=== PATIENT | female | born 1965 | race African-American/Black ===

== ENCOUNTER 2016-12-23 12:29 | Inpatient (IN) | payer BC, OTHER ==
[~2016-12-23] VITALS: Ht 160 cm; Wt 109.5 kg
--- NOTE | 2016-12-23 13:06 | PHYS DOC ---
Past Medical History Past Medical History: GERD, Hypertension, Other Additional Past Medical Histor: SEASONAL ALLERGIES Past Surgical History: Hysterectomy Alcohol Use: Occasionally Drug Use: None Adult General Chief Complaint Chief Complaint: CHEST PAIN HPI HPI Patient is a 51 year old female who presents with low back pain. Patient reports starting yesterday she has had some cramping low back pain. No clear inciting event. Patient has had multiple episodes like this in the past. She has tried ibuprofen, Tylenol, with insufficient relief. In addition, patient reports for the past couple days she has been having intermittent chest pain. She had an episode last night she describes a sharp pain that lasted about 5 minutes. She does feel little short of breath with these episodes, and becomes nauseous. She is not having any chest discomfort or shortness of breath at this time. She denies any cardiac history. Review of Systems Review of Systems Constitutional: Denies fever or chills Eyes: Denies change in visual acuity or eye pain HENT: Denies nasal congestion or sore throat Respiratory: Intermittent shortness of breath. Denies cough Cardiovascular: Intermittent chest pain GI: Intermittent nausea. Denies abdominal pain, vomiting, bloody stools or diarrhea : Denies dysuria or hematuria Musculoskeletal: Low back pain Integument: Denies rash or skin lesions Neurologic: Denies headache, focal weakness or sensory changes Current Medications Current Medications Current Medications Medications (Trade) Dose Ordered Sig/Marnie Start Time Stop Time Status Last Admin Dose Admin Acetaminophen/ Hydrocodone Bitart (Lortab 5/325) 2 tab 1X ONCE 12/23/16 13:30 12/23/16 13:48 DC Aspirin (Children'S Aspirin) 324 mg 1X ONCE 12/23/16 13:30 12/23/16 13:31 DC 12/23/16 13:38 324 MG Heparin Sodium (Porcine) (Heparin Sodium) 2,650 unit PRN Q6HRS PRN 12/23/16 13:30 Heparin Sodium (Porcine) 4000 unit 4,000 unit 1X ONCE 12/23/16 13:30 12/23/16 13:31 DC 12/23/16 13:40 4,000 UNIT Heparin Sodium/ Dextrose 500 ml @ 0 mls/hr CONT PRN 12/23/16 13:30 12/23/16 13:47 25.4 MLS/HR Morphine Sulfate 4 mg STK-MED ONCE 12/23/16 13:50 12/23/16 13:51 DC Allergies Allergies Allergies Coded Allergies Type Severity Reaction Last Updated Verified No Known Drug Allergies 01/21/16 No Physical Exam Physical Exam Constitutional: Well developed, well nourished, no acute distress, non-toxic appearance HENT: Normocephalic, atraumatic, bilateral external ears normal Eyes: EOMI, conjunctiva normal, no discharge Neck: Normal range of motion, no stridor Cardiovascular: Heart rate normal, regular rhythm, no murmur Lungs & Thorax: Bilateral breath sounds clear to auscultation Abdomen: Bowel sounds normal, soft, non-distended, no TTP Skin: Warm, dry, no erythema, no rash Back: Mild lateral lumber tenderness to palpation, no midline TTP, no deformity or skin lesion Extremities: Trace edema. No obvious deformity Neurologic: Alert and oriented X 3, no gross deficits noted Psychologic: Affect normal, judgement normal, mood normal Current Patient Data Vital Signs Vital Signs Date Time Temp Pulse Resp B/P Pulse Ox O2 Delivery O2 Flow Rate FiO2 12/23/16 14:10 73 17 187/105 Room Air 12/23/16 14:03 96 12/23/16 12:35 98.1 98.1 Lab Values Laboratory Tests Test 12/23/16 12:40 12/23/16 13:35 White Blood Count 8.3x10^3/uL (4.0-11.0) Red Blood Count 5.18x10^6/uL (3.50-5.40) Hemoglobin 13.3g/dL (12.0-15.5) Hematocrit 42.2% (36.0-47.0) Mean Corpuscular Volume 81fL (79-100) Mean Corpuscular Hemoglobin 26pg (25-35) Mean Corpuscular Hemoglobin Concent 32g/dL (31-37) Red Cell Distribution Width 15.3% (11.5-14.5) H Platelet Count 205x10^3/uL (140-400) Neutrophils (%) (Auto) 69% (31-73) Lymphocytes (%) (Auto) 22% (24-48) L Monocytes (%) (Auto) 4% (0-9) Eosinophils (%) (Auto) 4% (0-3) H Basophils (%) (Auto) 1% (0-3) Neutrophils # (Auto) 5.7x10^3uL (1.8-7.7) Lymphocytes # (Auto) 1.9x10^3/uL (1.0-4.8) Monocytes # (Auto) 0.4x10^3/uL (0.0-1.1) Eosinophils # (Auto) 0.3x10^3/uL (0.0-0.7) Basophils # (Auto) 0.1x10^3/uL (0.0-0.2) Prothrombin Time 13.5SEC (11.7-14.0) Prothrombin Time INR 1.1 (0.8-1.1) PTT 33SEC (24-38) Sodium Level 143mmol/L (136-145) Potassium Level 4.2mmol/L (3.5-5.1) Chloride Level 105mmol/L (98-107) Carbon Dioxide Level 27mmol/L (21-32) Anion Gap 11 (6-14) Blood Urea Nitrogen 13mg/dL (7-20) Creatinine 0.9mg/dL (0.6-1.0) Estimated GFR (Cockcroft-Gault) 80.5 Glucose Level 139mg/dL (70-99) H Calcium Level 9.1mg/dL (8.5-10.1) Total Bilirubin 0.5mg/dL (0.2-1.0) Direct Bilirubin 0.1mg/dL (0.0-0.2) Aspartate Amino Transferase (AST) 33U/L (15-37) Alanine Aminotransferase (ALT) 30U/L (14-59) Alkaline Phosphatase 78U/L (46-116) Troponin I Quantitative < 0.017ng/mL (0.000-0.055) Total Protein 7.8g/dL (6.4-8.2) Albumin 3.6g/dL (3.4-5.0) Urine Collection Type Unknown Urine Color Yellow Urine Clarity Clear Urine pH 6.0 Urine Specific [place] 1.025 Urine Protein Negativemg/dL (NEG-TRACE) Urine Glucose (UA) Negativemg/dL (NEG) Urine Ketones (Stick) Negativemg/dL (NEG) Urine Blood Negative (NEG) Urine Nitrite Negative (NEG) Urine Bilirubin Negative (NEG) Urine Urobilinogen Dipstick 1.0mg/dL (0.2 mg/dL) Urine Leukocyte Esterase Small (NEG) Urine RBC 0/HPF (0-2) Urine WBC 5-10/HPF (0-4) Urine Squamous Epithelial Cells Mod/LPF Urine Bacteria Moderate/HPF (0-FEW) Urine Mucus Mod/LPF Urine Trichomonas Present Laboratory Tests 12/23/16 12:40 Laboratory Tests 12/23/16 12:40 EKG EKG EKG (my read): sinus rhythm, rate 75, normal axis, TWI lead I/aVL, ST elevation anterior precordial leads Radiology/Procedures Radiology/Procedures CXR: Impression: No acute cardiopulmonary process. Course & Med Decision Making Course & Med Decision Making Pertinent Labs and Imaging studies reviewed. (See chart for details) Patient is 51-year-old female who presents with acute on chronic low back pain. More concerning is patient's intermittent chest pain. EKG concerning with T- wave inversions and ST elevation. I did not activate a STEMI as patient denies any chest discomfort or shortness of breath at this time. 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 EKG, chest x-ray, labs ordered to evaluate. Aspirin given as well as heparin drip as per Dr. Colin's recommendation. Blood work unremarkable; troponin within normal limits. EKG and imaging results as above. Dr. Colin has seen patient while in ED. Discussed results with patient. Discussed with Dr. Garcia, will admit under his care for further evaluation treatment. Dragon Disclaimer Dragon Disclaimer This electronic medical record was generated, in whole or in part, using a voice recognition dictation system. Departure Departure Impression: Primary Impression: Intermittent chest pain Additional Impressions: Abnormal EKG Low back pain Disposition: ADMITTED INPATIENT Admitting Physician: Shwetha Garcia Condition: STABLE Referrals: UNKNOWN PCP NAME (PCP) Problem Qualifiers JAXSON MACIAS MD Dec 23, 2016 13:06
[2016-12-23 13:15] LABS: BASO # 0.1 x10^3/uL (0.0-0.2); BASO % 1 % (0-3); EOS % 4 % (0-3); HEMATOCRIT 42.2 % (36.0-47.0); HEMOGLOBIN 13.3 g/dL (12.0-15.5); LYMPH # 1.9 x10^3/uL (1.0-4.8); LYMPH % 22 % (24-48); MEAN CORPUSCULAR HEMOGLOBIN 26 pg (25-35); MEAN CORPUSCULAR HGB CONC 32 g/dL (31-37); MEAN CORPUSCULAR VOLUME 81 fL (79-100); MONO % 4 % (0-9); NEUT % 69 % (31-73); PLATELET COUNT 205 x10^3/uL (140-400); RED BLOOD COUNT 5.18 x10^6/uL (3.50-5.40); RED CELL DISTRIBUTION WIDTH 15.3 % (11.5-14.5); WHITE BLOOD COUNT 8.3 x10^3/uL (4.0-11.0)
--- NOTE | 2016-12-23 13:22 | RAD ---
Exam: PA and lateral chest radiograph History: Intermittent chest pain, rule out acute process. Comparison: None. Findings: Cardiomediastinal silhouette is within normal limits for size. Bilateral lung valente are free of focal infiltrate. No pleural effusion is seen. Impression: No acute cardiopulmonary process.
[2016-12-23 13:26] LABS: CALCIUM 9.1 mg/dL (8.5-10.1); CREATININE 0.9 mg/dL (0.6-1.0); GFR 80.5; POTASSIUM 4.2 mmol/L (3.5-5.1)
[2016-12-23] MEDS ORDERED: ASPIRIN CHEWABLE 81 MG TABLET. PO ONE (13:30)
[2016-12-23] MEDS ORDERED: HYDROCODONE/APAP 5/325MG TABLET. PO ONE (13:30)
[2016-12-23] MEDS ORDERED: HEPARIN for IV BOLUS 10,000 UNIT/10 ML VIAL. IV ONE (13:30)
[2016-12-23] MEDS ORDERED: HEPARIN for IV BOLUS 10,000 UNIT/10 ML VIAL. IV PRN (13:30)
[2016-12-23] MEDS ORDERED: HEPARIN 25,000UTS/500ML PREMIX 500 ML IV PRN (13:30)
[2016-12-23 13:33] LABS: ALBUMIN 3.6 g/dL (3.4-5.0); DIRECT BILIRUBIN 0.1 mg/dL (0.0-0.2); TOTAL BILIRUBIN 0.5 mg/dL (0.2-1.0); TOTAL PROTEIN 7.8 g/dL (6.4-8.2)
[2016-12-23 13:41] LABS: INR 1.1 (0.8-1.1); PROTHROMBIN TIME PATIENT 13.5 SEC (11.7-14.0)
[2016-12-23 13:44] LABS: BILIRUBIN,URINE NEGATIVE (NEG); GLUCOSE,URINE NEGATIVE (NEG); NITRITE,URINE NEGATIVE (NEG); PROTEIN,URINE NEGATIVE (NEG-TRACE)
[2016-12-23] MEDS ORDERED: MORPHINE SULFATE 4 MG/ML DISP.SYRIN. IV STA (13:47)
[2016-12-23] MEDS ORDERED: MORPHINE SULFATE 4 MG/ML DISP.SYRIN. ONE (13:50)
[2016-12-23 13:56] LABS: BACTERIA,URINE MODERATE /HPF (0-FEW); RBC,URINE 0 /HPF (0-2); SQUAMOUS EPITHELIAL CELL,UR MOD /LPF
[2016-12-23 13:57] LABS: TRICHOMONAS,URINE PRESENT
[2016-12-23] MEDS: IV NORMAL SALINE 1000ML BAG 1,000 ML IV SCH ×2 (14:27→22:27)
[2016-12-23] MEDS ORDERED: NITROGLYCERIN SUBLINGUAL 0.4 MG BOTTLE OF 25. SL PRN (14:30)
[2016-12-23] MEDS ORDERED: ACETAMINOPHEN 325 MG TABLET. PO PRN (14:30)
[2016-12-23] MEDS ORDERED: ONDANSETRON PF 4 MG/2 ML VIAL. IV PRN (14:30)
[2016-12-23] MEDS ORDERED: MORPHINE SULFATE 4 MG/ML DISP.SYRIN. IV PRN (14:30)
--- NOTE | 2016-12-23 14:44 | EKG ---
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
--- NOTE | 2016-12-23 15:30 | ACF ---
Admission Forms Criteria CARDIOLOGY [facility] Clinical Indications for Admission to Inpatient Care ( Place 'X' for any and all applicable criteria): Hospital admission is needed for appropriate care of the patient because of ANY ONE of the following (1): [ ] I. Hemodynamic instability as indicated by ALL of the following (1)(2)(3) (4)(5) [ ]a) Vital signs or other findings not as expected for chronic patient condition or baseline [ ]b) Instability indicated by ANY ONE of the following: [ ]i) Hypotension [ ]ii) Symptomatic Tachycardia unresponsive to treatment ( e.g., analgesia, fluids, sedation as indicated) [ ]iii) Inadequate perfusion indicated by ANY ONE of the following: [ ] 1) Lactic acidosis (> 2 mmol/L) [ ] 2) New abnormal capillary refill (> 3 seconds) [ ] 3) Reduced urine output [ ] 4) New altered mental status [ ]iv) Orthostatic vital sign changes unresponsive to treatment (e.g., fluids) [ ]v) IV inotropic or vasopressor medication required to maintain adequate blood pressure or perfusion [ ] II. Severe heart failure as indicated by ANY ONE of the following(17)(18) [ ]a) Respiratory distress [ ]b) Hypotension [ ]c) Anasarca (refractory to outpatient therapy) [ ]d) Cardiac arrhythmias of immediate concern [ ]e) Myocardial ischemia [ ] III. Cardiac arrhythmias or findings of immediate concern indicated by ANY ONE of the following (19)(20): [ ] a) Heart rhythms that are inherently dangerous or unstable indicated by ANY ONE of the following (21)(22)(23): [ ] i) Resuscitated ventricular fibrillation or cardiac arrest [ ] ii) Ventricular escape rhythm [ ] iii) Sustained ventricular tachycardia (30 seconds or more of ventricular rhythm at greater than 100 beats per minute) [ ] iv) Nonsustained ventricular tachycardia and ANY ONE of the following: [ ] 1) Suspected cardiac ischemia as cause or consequence of ventricular tachycardia [ ] 2) In setting of acute myocarditis [ ] b) Unstable cardiac conduction defects indicated by ANY ONE of the following(23)(24)(25) [ ] i) Type II second-degree atrioventricular block [ ]ii) Third-degree atrioventricular block [ ]iii) New-onset left bundle branch block with suspected myocardial ischemia [ ]c) Any heart rhythm and ANY ONE of the following (21)(22)(26)(27) (28) [ ] i) Continuous long-term ECG monitoring needed (e.g., initiation of drug requiring monitoring for more than 24 hours) [ ] ii) Patient has automatic implanted cardioverter defibrillator that is repeatedly firing, malfunctioning, or in need of immediate adjustment of settings beyond the scope of ambulatory or observation care [ ]d) Heart rhythms of concern due to ANY ONE of the following: [ ] i) Hypotension [ ] ii) Respiratory distress [ ] iii) Association with other significant symptoms (e.g., bradycardia with syncope or ongoing dizziness, supraventricular tachycardia with chest pain (14)(15)(17) [ ] IV. Monitoring for cardiac contusion beyond the scope of observation care needed [A](30)(31)(32) [ ] V. Surgical or device complication (e.g., valve replacement complication , pacemaker dysfunction) (35)(41)(44)(45)(46) [ ] . Inpatient palliative care needed. [B](49) Also use Inpatient Palliative Care Criteria [ ] VII. Nonbacterial thrombotic (marantic) endocarditis (36)(43)(47)(48) [X] VIII. Cardiology condition, symptom, or finding for which emergency and observation care has failed or are not considered appropriate. [ ] IX. Acute valvular disease requiring inpatient as indicated by ANY ONE of the following (41) [ ]a) Acute valvular regurgitation (42) [ ]b) Noninfectious valvulitis (43) [ ]c) Obstructive valve thrombosis [ ]d) Paravalvular leak [ ]e) Other significant valvular disorder remaining after emergency or observation level of care (as appropriate) [ ]X. Pericardial disease requiring inpatient treatment as indicated by ANY ONE of the following (33)(34)(35)(36)(37) [ ]a) Suspected tamponade (38)(39)(40) [ ]b) Hemopericardium [ ]c) Other significant pericardial disorder remaining after emergency or observation level of care (as appropriate) [ ] XI. Cardiac ischemia beyond scope of emergency and observation care. [ ] XII. Hypertension requiring inpatient treatment as indicated by ANY ONE of the following (6)(7)(8) [ ]a) SBP greater than 220 mm Hg or DBP greater than 120 mmHg despite treatment [ ]b) SBP greater than 140 mm Hg or DBP greater than 100 mm Hg with evidence of acute end organ damage as indicated by ANY ONE of the following [ ] i) Encephalopathy [ ] ii) Acute renal failure as indicated by new onset of ANY ONE of the following (9)(10)(11)(12)(13) [ ]1) 3-fold rise in serum creatinine from baseline [ ]2) Serum creatinine greater than 4 mg/dL ( 354 micromoles/L) with acute rise greater than 0.5 mg/dL (44.2 micromoles/L) [ ]3) Reduction of more than 75% in estimated glomerular filtration rate from baseline [ ]4) Estimated glomerular filtration rate less than 35 mL/min/1.73m2 (0.59 mL/sec/1.73m2) in child up to 18 years of age [ ]5) Cessation of urine output indicated by ALL of the following [ ]A. Adequate volume status [ ]B. Inadequate urine output as indicated by ANY ONE of the following [ ]a. Urine output less than 0.3 mL/kg/hr for 24 hours [ ]b. Anuria (urine output less than 0.1 mL/kg/hr) for 12 hours [ ] iii) Aortic dissection [ ] iv) Myocardial Ischemia [ ] v) Left ventricular heart failure [ ]vi) Retinal Hemorrhage [ ]vii) Other significant finding [ ]c) Hypertension in child requiring inpatient treatment as indicated by ALL of the following(14)(15)(16) [ ] i) Outpatient treatment not effective, not available, or not appropriate [ ]ii) SBP or DBP greater than 95th percentile for age [ ]iii) Evidence of acute end organ damage as indicated by ANY ONE of the following [ ]1) Altered mental status [ ]2) Acute renal failure as indicated by new onset of ANY ONE of the following(9)(10)(11)(12)(13) [ ]A. 3-fold rise in serum creatinine from baseline [ ]B. Serum creatinine greater than 4 mg/dL (354 micromoles/L) with acute rise greater than 0.5 mg/dL (44.2 micromoles/L) [ ]C. Reduction of more than 75% in estimated glomerular filtration rate from baseline [ ]D. Estimated glomerular filtration rate less than 35 mL/min/1.73m2 (0.59 mL/sec/1.73m2) in child up to 18 years of age [ ]E. Cessation of urine output indicated by ALL of the following [ ]a. Adequate volume status [ ]b. Inadequate urine output as indicated by ANY ONE of the following [ ]i) Urine output less than 0.3 mL/kg/hr for 24 hours [ ]ii) Anuria ( urine output less than 0.1 mL/kg/hr) for 12 hours [ ]3) Severe headache [ ]4) Visual disturbance [ ]5) Retinal hemorrhage [ ]6) Other significant finding [ ]XIII. Complications of transplanted heart indicated by ANY ONE of the following(61): [ ]a) Acute graft rejection requiring inpatient management (eg, intravenous immunosuppression)(62)(63) [ ]b) Acute graft heart failure indicated by ANY ONE of the following(64): [ ]i) Hemodynamic instability [ ]ii) Cardiac arrhythmias of immediate concern [ ]iii) Pulmonary edema that is very severe (eg, mechanical ventilation needed, imminent or likely, need for 100% oxygen to keep oxygen saturation above 90%) [ ]iv) Pulmonary edema that is persistent as indicated by ALL of the following: [ ]1) New need for oxygen therapy to keep oxygen saturation above 90% (or increased FiO2 need from baseline) [ ]2) Has not improved sufficiently with emergency department or observation care IV diuretics or other heart failure treatments[E] [ ]v) Altered mental status that is severe or persistent [ ]vi) Increased creatinine (new on laboratory test) with reduction of more than 50% in estimated glomerular filtration rate from baseline [ ]vii) Progressively (ongoing) rising creatinine (known from past laboratory test) with reduction of more than 25% in estimated glomerular filtration rate from baseline [ ]viii) Acute renal failure [ ]ix) Acute peripheral ischemia (eg, examination shows pulseless, cool, mottled, or cyanotic extremity) [ ]x) Pulmonary artery catheter monitoring needed [ ]xi) Other sign or symptom of heart failure requiring inpatient treatment (ie, too severe or not responsive to outpatient and observation care treatment) [ ]c) Infection requiring inpatient management (eg, Hemodynamic instability, need for intravenous antimicrobial treatment)(66)(67)(68)(69)(70) [ ]d) Cardiac allograft vasculopathy requiring inpatient management ( eg evidence of cardiac ischemia)(71) [ ]e) Other complication of transplanted heart (eg, stroke, severe pulmonary hypertension, severe valvular dysfunction) requiring inpatient management(72) The original [facility] content created by [facility] has been revised. The portions of the content which have been revised are identified through the use of italic text or in bold, and [facility] has neither reviewed nor approved the modified material. All other unmodified content is copyright [facility]. Please see references footnoted in the original [facility] edition 2016 Admission Criteria Met?: Yes LEVI SANCHEZ Dec 23, 2016 15:30
--- NOTE | 2016-12-23 17:05 | PDOC1 ---
History and Physical Date of Admission Date of Admission DATE: 12/23/16 TIME: 17:04 Identification/Chief Complaint Chief Complaint chest pain Source Source: Chart review, Patient History of Present Illness History of Present Illness Ms. Troy was seen in the Er. She presents complaining of recurrent mid sternal chest pain. Severe pain, sometimes with exertion over the past few days. Today, pain with pressure, mid-sternal, no nausea or diaphoresis. Pain 6/10, not reproducible. She reports seeing Dr. Colin in the past, prior stress test normal, no CV cath. Family history of CAD in her mother. pt reports weight gain over the past year, likely poor diet related Past Medical History Cardiovascular: HTN GI: GERD Heme/Onc: No pertinent hx Hepatobiliary: No pertinent hx Psych: No pertinent hx Musculoskeletal: low back pain Family History Family History: Coronary Artery Disease Social History Smoke: No ALCOHOL: none Current Problem List Problem List Problems Medical Problems: (1) Abnormal EKG Status: Acute (2) Intermittent chest pain Status: Acute (3) Low back pain Status: Acute Problems: Current Medications Current Medications Current Medications Aspirin (Children'S Aspirin) 324 mg 1X ONCE PO Last administered on 12/23/16 13:38; Start 12/23/16 at 13:30; Stop 12/23/16 at 13:31; Status DC Acetaminophen/ Hydrocodone Bitart (Lortab 5/325) 2 tab 1X ONCE PO ; Start at 13:30; Stop 12/23/16 at 13:48; Status DC Heparin Sodium (Porcine) 4000 unit 4,000 unit 1X ONCE IV Last administered on 12/23/16 13:40; Start 12/23/16 at 13:30; Stop 12/23/16 at 13:31; Status DC Heparin Sodium/ Dextrose 500 ml @ 0 mls/hr CONT PRN IV SEE I/O RECORD Last administered on 12/23/16 13:47; Start 12/23/16 at 13:30 Heparin Sodium (Porcine) (Heparin Sodium) 2,650 unit PRN Q6HRS PRN IV FOR UFH LEVEL LESS THAN 0.2; Start 12/23/16 at 13:30 Morphine Sulfate 4 mg 1X STAT IV Last administered on 12/23/16 14:03; Start at 13:47; Stop 12/23/16 at 13:50; Status DC Morphine Sulfate 4 mg STK-MED ONCE .ROUTE ; Start 12/23/16 at 13:50; Stop at 13:51; Status DC Ondansetron HCl (Zofran) 4 mg PRN Q8HRS PRN IV NAUSEA/VOMITING; Start 12/23/16 at 14:30; Stop 12/24/16 at 14:29 Morphine Sulfate 4 mg 4 mg PRN Q2HR PRN IV PAIN; Start 12/23/16 at 14:30; Stop 12/24/16 at 14:29 Sodium Chloride (Iv Sodium Chloride 0.9% 1000ml Bag) 1,000 ml @ 125 mls/hr Q8H IV ; Start 12/23/16 at 14:27; Stop 12/24/16 at 14:26 Acetaminophen (Tylenol) 650 mg PRN Q4HRS PRN PO FEVER; Start 12/23/16 at 14:30; Stop 12/24/16 at 14:29 Nitroglycerin (Nitrostat) 0.4 mg PRN Q5MIN PRN SL CHEST PAIN; Start 12/23/16 at 14:30; Stop 12/24/16 at 14:29 Allergies Allergies: Coded Allergies: No Known Drug Allergies (Unverified , 01/21/16) ROS General: No: Appetite, Chills, Fatigue, Malaise, Night Sweats, Other PSYCHOLOGICAL ROS: No: Anxiety, Behavioral Disorder, Concentration difficultie , Decreased libido, Depression, Disorientation, Hallucinations, Hostility, Irritablity, Memory difficulties, Mood Swings, Obsessive thoughts, Other, Physical abuse, Sexual abuse, Sleep disturbances, Suicidal ideation Eyes: No Blurry vision, No Decreased vision, No Double vision, No Dry eyes, No Excessive tearing, No Eye Pain, No Itchy Eyes, No Loss of vision, No Other, No Photophobia, No Scotomata, No Uses contacts, No Uses glasses HEENT: No: Epistaxis, Heacaches, Hearing change, Nasal congestion, Nasal discharge, Oral lesions, Other, Sinus pain, Sneezing, Snoring, Sore Throat, Tinnitus, Vertigo, Visual Changes, Vocal changes ENDOCRINE: No: Breast Changes, Galactorrhea, Hair Pattern Changes, Hot Flashes , Malaise/lethargy, Mood Swings, Other, Palpitations, Polydipsia/polyuria, Skin Changes, Temperature Intolerance, Unexpected Weight Changes Respiratory: YES: SOB with excertion, No: Cough, Hemoptysis, Orthopnea, Other, Pleuritic Pain, Shortness of breath , Sputum Changes, Stridor, Tachypnea, Wheezing Cardiovascular: yes Chest Pain, No Edema, No Lt Headedness, No Orthopnea, No Other, No Palpitations, No Paroxysmal Noc. Dyspnea Gastrointestinal: No Abdominal Pain, No Constipation, No Diarrhea, No Hematochezia, No Melena, No Other, No Vomiting Genitourinary: No , No , No , No , No , No , No , No Discharge, No Dysuria, No Flank Pain, No Frequency, No Hematuria, No Incontinence, No Other, No Pain, No Retention, No Urgency Musculoskeletal: No Gait Disturbance, No Joint Pain, No Joint Stiffness, No Joint Swelling, No Muscle Pain, No Muscular Weakness, No Other, No Pain In:, No Swelling In: Neurological: No Behavorial Changes, No Bowel/Bladder ControlChng, No Confusion , No Dizziness, No Gait Disturbance, No Headaches, No Impaired Coord/balance, No Memory Loss, No Numbness/Tingling, No Other, No Seizures, No Speech Problems , No Tremors, No Visual Changes, No Weakness Skin: No Acne, No Dry Skin, No Eczema, No Hair Changes, No Lumps, No Mole Changes, No Mottling, No Nail Changes, No Other, No Pruritus, No Rash, No Skin Lesion Changes Physical Exam General: Alert, Oriented X3, Cooperative HEENT: Atraumatic, PERRLA, EOMI Lungs: Clear to auscultation, Normal air movement Abdomen: Normal bowel sounds, Soft (obese), No tenderness Rectal Exam: not examined, deferred Extremities: No clubbing, No edema, Normal pulses Skin: No rashes, No breakdown Neuro: Normal speech, Sensation intact Psych/Mental Status: Mental status NL, Mood NL Vitals Vitals Vital Signs Date Time Temp Pulse Resp B/P Pulse Ox O2 Delivery O2 Flow Rate FiO2 12/23/16 15:40 69 20 167/108 Room Air 12/23/16 14:03 96 12/23/16 12:35 98.1 98.1 Labs Labs Laboratory Tests Test 12/23/16 12:40 12/23/16 13:35 White Blood Count 8.3x10^3/uL (4.0-11.0) Red Blood Count 5.18x10^6/uL (3.50-5.40) Hemoglobin 13.3g/dL (12.0-15.5) Hematocrit 42.2% (36.0-47.0) Mean Corpuscular Volume 81fL (79-100) Mean Corpuscular Hemoglobin 26pg (25-35) Mean Corpuscular Hemoglobin Concent 32g/dL (31-37) Red Cell Distribution Width 15.3% (11.5-14.5) Platelet Count 205x10^3/uL (140-400) Neutrophils (%) (Auto) 69% (31-73) Lymphocytes (%) (Auto) 22% (24-48) Monocytes (%) (Auto) 4% (0-9) Eosinophils (%) (Auto) 4% (0-3) Basophils (%) (Auto) 1% (0-3) Neutrophils # (Auto) 5.7x10^3uL (1.8-7.7) Lymphocytes # (Auto) 1.9x10^3/uL (1.0-4.8) Monocytes # (Auto) 0.4x10^3/uL (0.0-1.1) Eosinophils # (Auto) 0.3x10^3/uL (0.0-0.7) Basophils # (Auto) 0.1x10^3/uL (0.0-0.2) Prothrombin Time 13.5SEC (11.7-14.0) Prothromb Time International Ratio 1.1 (0.8-1.1) Activated Partial Thromboplast Time 33SEC (24-38) Sodium Level 143mmol/L (136-145) Potassium Level 4.2mmol/L (3.5-5.1) Chloride Level 105mmol/L (98-107) Carbon Dioxide Level 27mmol/L (21-32) Anion Gap 11 (6-14) Blood Urea Nitrogen 13mg/dL (7-20) Creatinine 0.9mg/dL (0.6-1.0) Estimated GFR (Cockcroft-Gault) 80.5 Glucose Level 139mg/dL (70-99) Calcium Level 9.1mg/dL (8.5-10.1) Total Bilirubin 0.5mg/dL (0.2-1.0) Direct Bilirubin 0.1mg/dL (0.0-0.2) Aspartate Amino Transf (AST/SGOT) 33U/L (15-37) Alanine Aminotransferase (ALT/SGPT) 30U/L (14-59) Alkaline Phosphatase 78U/L (46-116) Troponin I Quantitative < 0.017ng/mL (0.000-0.055) Total Protein 7.8g/dL (6.4-8.2) Albumin 3.6g/dL (3.4-5.0) Urine Collection Type Unknown Urine Color Yellow Urine Clarity Clear Urine pH 6.0 Urine Specific [place] 1.025 Urine Protein Negativemg/dL (NEG-TRACE) Urine Glucose (UA) Negativemg/dL (NEG) Urine Ketones (Stick) Negativemg/dL (NEG) Urine Blood Negative (NEG) Urine Nitrite Negative (NEG) Urine Bilirubin Negative (NEG) Urine Urobilinogen Dipstick 1.0mg/dL (0.2 mg/dL) Urine Leukocyte Esterase Small (NEG) Urine RBC 0/HPF (0-2) Urine WBC 5-10/HPF (0-4) Urine Squamous Epithelial Cells Mod/LPF Urine Bacteria Moderate/HPF (0-FEW) Urine Mucus Mod/LPF Urine Trichomonas Present Laboratory Tests Test 12/23/16 12:40 12/23/16 13:35 White Blood Count 8.3x10^3/uL (4.0-11.0) Red Blood Count 5.18x10^6/uL (3.50-5.40) Hemoglobin 13.3g/dL (12.0-15.5) Hematocrit 42.2% (36.0-47.0) Mean Corpuscular Volume 81fL (79-100) Mean Corpuscular Hemoglobin 26pg (25-35) Mean Corpuscular Hemoglobin Concent 32g/dL (31-37) Red Cell Distribution Width 15.3% (11.5-14.5) Platelet Count 205x10^3/uL (140-400) Neutrophils (%) (Auto) 69% (31-73) Lymphocytes (%) (Auto) 22% (24-48) Monocytes (%) (Auto) 4% (0-9) Eosinophils (%) (Auto) 4% (0-3) Basophils (%) (Auto) 1% (0-3) Neutrophils # (Auto) 5.7x10^3uL (1.8-7.7) Lymphocytes # (Auto) 1.9x10^3/uL (1.0-4.8) Monocytes # (Auto) 0.4x10^3/uL (0.0-1.1) Eosinophils # (Auto) 0.3x10^3/uL (0.0-0.7) Basophils # (Auto) 0.1x10^3/uL (0.0-0.2) Prothrombin Time 13.5SEC (11.7-14.0) Prothromb Time International Ratio 1.1 (0.8-1.1) Activated Partial Thromboplast Time 33SEC (24-38) Sodium Level 143mmol/L (136-145) Potassium Level 4.2mmol/L (3.5-5.1) Chloride Level 105mmol/L (98-107) Carbon Dioxide Level 27mmol/L (21-32) Anion Gap 11 (6-14) Blood Urea Nitrogen 13mg/dL (7-20) Creatinine 0.9mg/dL (0.6-1.0) Estimated GFR (Cockcroft-Gault) 80.5 Glucose Level 139mg/dL (70-99) Calcium Level 9.1mg/dL (8.5-10.1) Total Bilirubin 0.5mg/dL (0.2-1.0) Direct Bilirubin 0.1mg/dL (0.0-0.2) Aspartate Amino Transf (AST/SGOT) 33U/L (15-37) Alanine Aminotransferase (ALT/SGPT) 30U/L (14-59) Alkaline Phosphatase 78U/L (46-116) Troponin I Quantitative < 0.017ng/mL (0.000-0.055) Total Protein 7.8g/dL (6.4-8.2) Albumin 3.6g/dL (3.4-5.0) Urine Collection Type Unknown Urine Color Yellow Urine Clarity Clear Urine pH 6.0 Urine Specific [place] 1.025 Urine Protein Negativemg/dL (NEG-TRACE) Urine Glucose (UA) Negativemg/dL (NEG) Urine Ketones (Stick) Negativemg/dL (NEG) Urine Blood Negative (NEG) Urine Nitrite Negative (NEG) Urine Bilirubin Negative (NEG) Urine Urobilinogen Dipstick 1.0mg/dL (0.2 mg/dL) Urine Leukocyte Esterase Small (NEG) Urine RBC 0/HPF (0-2) Urine WBC 5-10/HPF (0-4) Urine Squamous Epithelial Cells Mod/LPF Urine Bacteria Moderate/HPF (0-FEW) Urine Mucus Mod/LPF Urine Trichomonas Present VTE Prophylaxis Ordered VTE Prophylaxis Devices: No VTE Pharmacological Prophylaxi: Yes Assessment/Plan Assessment/Plan chest pain, angina, admit from ER, consult CV to det. stability, some small change in V1, V2, not quite 1mm obesity, BMI 43 r/o ACS, htn, will give metoprolol overnight until ACS ruled out heparin gtt started, will cont. CV consult to see known GERD, cont PEPCID, change to BID admit obs TERRY PELAYO MD Dec 23, 2016 17:05
[2016-12-23 17:50] VITALS: BP 170/109
[2016-12-23] MEDS ORDERED: CARV12.5 PO (19:33)
[2016-12-23] MEDS ORDERED: HYDR12.53 PO (19:33)
[2016-12-23] MEDS ORDERED: CLON0.1T PO (19:33)
[2016-12-23] MEDS ORDERED: AMLO2.5T2 PO (19:33)
[2016-12-23] MEDS ORDERED: RANI150T2 PO (19:33)
[2016-12-23 19:55] VITALS: BP 163/92
[2016-12-23] MEDS: METOPROLOL TART IMMED RELEASE 25 MG TABLET. PO SCH (20:23)
[2016-12-23] MEDS: CLONIDINE HCL 0.1 MG TABLET PO SCH (20:23)
[2016-12-23] MEDS: CARVEDILOL 12.5 MG TABLET. PO SCH (20:23)
[2016-12-23] MEDS ORDERED: FAMOTIDINE 20 MG TABLET. PO SCH (21:00)
[2016-12-23] MEDS: METRONIDAZOLE 500 MG TABLET. PO SCH (21:38)
[2016-12-23 22:30] VITALS: BP 129/95
[2016-12-23] MEDS ORDERED: CALCIUM CARBONATE 500 MG TAB.CHEW PO PRN (23:00)
[2016-12-24 03:30] VITALS: BP 133/90
[2016-12-24] MEDS ORDERED: BENZOCAINE/MENTHOL LOZENGE. PO PRN (03:45)
[2016-12-24 06:27] LABS: BASO # 0.1 x10^3/uL (0.0-0.2); BASO % 1 % (0-3); EOS % 5 % (0-3); HEMATOCRIT 41.5 % (36.0-47.0); HEMOGLOBIN 13.1 g/dL (12.0-15.5); LYMPH # 2.1 x10^3/uL (1.0-4.8); LYMPH % 26 % (24-48); MEAN CORPUSCULAR HEMOGLOBIN 26 pg (25-35); MEAN CORPUSCULAR HGB CONC 32 g/dL (31-37); MEAN CORPUSCULAR VOLUME 82 fL (79-100); MONO % 6 % (0-9); NEUT % 63 % (31-73); PLATELET COUNT 187 x10^3/uL (140-400); RED BLOOD COUNT 5.06 x10^6/uL (3.50-5.40); RED CELL DISTRIBUTION WIDTH 14.8 % (11.5-14.5)
[2016-12-24] MEDS: IV NORMAL SALINE 1000ML BAG 1,000 ML IV SCH (06:27)
[2016-12-24 06:59] LABS: ALBUMIN 3.1 g/dL (3.4-5.0); ALBUMIN/GLOBULIN RATIO 0.8 (1.0-1.7); CALCIUM 8.5 mg/dL (8.5-10.1); CREATININE 0.8 mg/dL (0.6-1.0); GFR 92.2; POTASSIUM 3.7 mmol/L (3.5-5.1); TOTAL BILIRUBIN 0.4 mg/dL (0.2-1.0); TOTAL PROTEIN 6.9 g/dL (6.4-8.2)
[2016-12-24 07:00] VITALS: BP 150/91
[2016-12-24 07:00] LABS: CHOLESTEROL/HDL RATIO 5.4
[2016-12-24] MEDS ORDERED: ONDANSETRON PF 4 MG/2 ML VIAL. IV PRN (07:42)
[2016-12-24] MEDS ORDERED: OXYCODONE/APAP 5/325 TABLET. PO PRN (07:45)
[2016-12-24] MEDS ORDERED: FAMOTIDINE 20 MG TABLET. PO SCH (09:00)
[2016-12-24] MEDS ORDERED: LIDOCAINE (700MG/PATCH) PATCH. TD SCH (09:00)
[2016-12-24] MEDS ORDERED: NAPROXEN 500 MG TABLET PO SCH (09:00)
[2016-12-24] MEDS ORDERED: AMLODIPINE BESYLATE 2.5 MG TABLET. PO SCH (09:00)
[2016-12-24] MEDS ORDERED: HYDROCHLOROTHIAZIDE 12.5 MG CAPSULE. PO SCH (09:00)
[2016-12-24] MEDS: METOPROLOL TART IMMED RELEASE 25 MG TABLET. PO SCH (09:03)
[2016-12-24] MEDS: CARVEDILOL 12.5 MG TABLET. PO SCH ×2 (09:04→17:00)
[2016-12-24] MEDS: CLONIDINE HCL 0.1 MG TABLET PO SCH (09:04)
[2016-12-24] MEDS: METRONIDAZOLE 500 MG TABLET. PO SCH ×2 (09:05→14:00)
[2016-12-24 11:00] VITALS: BP 119/72
--- NOTE | 2016-12-24 13:01 | PDOC ---
PROGRESS NOTES Chief Complaint Chief Complaint 1. Chest pain r.o ACS 2. Obesity BMI 43 3. Acute on chronic back pain History of Present Illness History of Present Illness Just had echo VS and EKG and trops reassuring On naproxen at home for back pain BAck pain brought her in PLAN: Await echo results REsume NSAID Trial of lidoderm patch MAy consult physiatry Dw pt and Cards Vitals Vitals Vital Signs Date Time Temp Pulse Resp B/P Pulse Ox O2 Delivery O2 Flow Rate FiO2 12/24/16 11:00 98.9 72 18 119/72 95 Room Air 98.9 Physical Exam General: Alert, Oriented X3, Cooperative Abdomen: Normal bowel sounds, Soft (obese), No tenderness Extremities: No clubbing, No edema, Normal pulses Skin: No rashes, No breakdown Labs LABS Laboratory Tests Test 12/23/16 13:35 12/23/16 20:10 12/24/16 04:45 Urine Collection Type Unknown Urine Color Yellow Urine Clarity Clear Urine pH 6.0 Urine Specific [place] 1.025 Urine Protein Negativemg/dL (NEG-TRACE) Urine Glucose (UA) Negativemg/dL (NEG) Urine Ketones (Stick) Negativemg/dL (NEG) Urine Blood Negative (NEG) Urine Nitrite Negative (NEG) Urine Bilirubin Negative (NEG) Urine Urobilinogen Dipstick 1.0mg/dL (0.2 mg/dL) Urine Leukocyte Esterase Small (NEG) Urine RBC 0/HPF (0-2) Urine WBC 5-10/HPF (0-4) Urine Squamous Epithelial Cells Mod/LPF Urine Bacteria Moderate/HPF (0-FEW) Urine Mucus Mod/LPF Urine Trichomonas Present Troponin I Quantitative < 0.017ng/mL (0.000-0.055) < 0.017ng/mL (0.000-0.055) White Blood Count 8.0x10^3/uL (4.0-11.0) Red Blood Count 5.06x10^6/uL (3.50-5.40) Hemoglobin 13.1g/dL (12.0-15.5) Hematocrit 41.5% (36.0-47.0) Mean Corpuscular Volume 82fL (79-100) Mean Corpuscular Hemoglobin 26pg (25-35) Mean Corpuscular Hemoglobin Concent 32g/dL (31-37) Red Cell Distribution Width 14.8% (11.5-14.5) Platelet Count 187x10^3/uL (140-400) Neutrophils (%) (Auto) 63% (31-73) Lymphocytes (%) (Auto) 26% (24-48) Monocytes (%) (Auto) 6% (0-9) Eosinophils (%) (Auto) 5% (0-3) Basophils (%) (Auto) 1% (0-3) Neutrophils # (Auto) 5.0x10^3uL (1.8-7.7) Lymphocytes # (Auto) 2.1x10^3/uL (1.0-4.8) Monocytes # (Auto) 0.4x10^3/uL (0.0-1.1) Eosinophils # (Auto) 0.4x10^3/uL (0.0-0.7) Basophils # (Auto) 0.1x10^3/uL (0.0-0.2) Erythrocyte Sedimentation Rate 15 (0-25) Heparin Anti-Xa Act, Unfractionated 0.18IU/mL (0.30-0.70) Sodium Level 142mmol/L (136-145) Potassium Level 3.7mmol/L (3.5-5.1) Chloride Level 105mmol/L (98-107) Carbon Dioxide Level 28mmol/L (21-32) Anion Gap 9 (6-14) Blood Urea Nitrogen 12mg/dL (7-20) Creatinine 0.8mg/dL (0.6-1.0) Estimated GFR (Cockcroft-Gault) 92.2 BUN/Creatinine Ratio 15 (6-20) Glucose Level 102mg/dL (70-99) Calcium Level 8.5mg/dL (8.5-10.1) Total Bilirubin 0.4mg/dL (0.2-1.0) Aspartate Amino Transf (AST/SGOT) 14U/L (15-37) Alanine Aminotransferase (ALT/SGPT) 27U/L (14-59) Alkaline Phosphatase 65U/L (46-116) Total Protein 6.9g/dL (6.4-8.2) Albumin 3.1g/dL (3.4-5.0) Albumin/Globulin Ratio 0.8 (1.0-1.7) Triglycerides Level 99mg/dL (0-150) Cholesterol Level 172mg/dL (0-200) LDL Cholesterol, Calculated 120mg/dL (0-100) VLDL Cholesterol, Calculated 20mg/dL (0-40) HDL Cholesterol 32mg/dL (40-60) Cholesterol/HDL Ratio 5.4 Review of Systems Review of Systems back pain, no cp, Soa, abd pain,. n.v.d Assessment and Plan Assessmemt and Plan Problems Medical Problems: (1) Abnormal EKG Status: Acute (2) Intermittent chest pain Status: Acute (3) Low back pain Status: Acute Problems: Comment Review of Relevant I have reviewed the following items cong (where applicable) has been applied. Labs Laboratory Tests Test 12/23/16 12:40 12/23/16 13:35 12/23/16 20:10 12/24/16 04:45 White Blood Count 8.3x10^3/uL (4.0-11.0) 8.0x10^3/uL (4.0-11.0) Red Blood Count 5.18x10^6/uL (3.50-5.40) 5.06x10^6/uL (3.50-5.40) Hemoglobin 13.3g/dL (12.0-15.5) 13.1g/dL (12.0-15.5) Hematocrit 42.2% (36.0-47.0) 41.5% (36.0-47.0) Mean Corpuscular Volume 81fL (79-100) 82fL (79-100) Mean Corpuscular Hemoglobin 26pg (25-35) 26pg (25-35) Mean Corpuscular Hemoglobin Concent 32g/dL (31-37) 32g/dL (31-37) Red Cell Distribution Width 15.3% (11.5-14.5) 14.8% (11.5-14.5) Platelet Count 205x10^3/uL (140-400) 187x10^3/uL (140-400) Neutrophils (%) (Auto) 69% (31-73) 63% (31-73) Lymphocytes (%) (Auto) 22% (24-48) 26% (24-48) Monocytes (%) (Auto) 4% (0-9) 6% (0-9) Eosinophils (%) (Auto) 4% (0-3) 5% (0-3) Basophils (%) (Auto) 1% (0-3) 1% (0-3) Neutrophils # (Auto) 5.7x10^3uL (1.8-7.7) 5.0x10^3uL (1.8-7.7) Lymphocytes # (Auto) 1.9x10^3/uL (1.0-4.8) 2.1x10^3/uL (1.0-4.8) Monocytes # (Auto) 0.4x10^3/uL (0.0-1.1) 0.4x10^3/uL (0.0-1.1) Eosinophils # (Auto) 0.3x10^3/uL (0.0-0.7) 0.4x10^3/uL (0.0-0.7) Basophils # (Auto) 0.1x10^3/uL (0.0-0.2) 0.1x10^3/uL (0.0-0.2) Prothrombin Time 13.5SEC (11.7-14.0) Prothromb Time International Ratio 1.1 (0.8-1.1) Activated Partial Thromboplast Time 33SEC (24-38) Sodium Level 143mmol/L (136-145) 142mmol/L (136-145) Potassium Level 4.2mmol/L (3.5-5.1) 3.7mmol/L (3.5-5.1) Chloride Level 105mmol/L (98-107) 105mmol/L (98-107) Carbon Dioxide Level 27mmol/L (21-32) 28mmol/L (21-32) Anion Gap 11 (6-14) 9 (6-14) Blood Urea Nitrogen 13mg/dL (7-20) 12mg/dL (7-20) Creatinine 0.9mg/dL (0.6-1.0) 0.8mg/dL (0.6-1.0) Estimated GFR (Cockcroft-Gault) 80.5 92.2 Glucose Level 139mg/dL (70-99) 102mg/dL (70-99) Calcium Level 9.1mg/dL (8.5-10.1) 8.5mg/dL (8.5-10.1) Total Bilirubin 0.5mg/dL (0.2-1.0) 0.4mg/dL (0.2-1.0) Direct Bilirubin 0.1mg/dL (0.0-0.2) Aspartate Amino Transf (AST/SGOT) 33U/L (15-37) 14U/L (15-37) Alanine Aminotransferase (ALT/SGPT) 30U/L (14-59) 27U/L (14-59) Alkaline Phosphatase 78U/L (46-116) 65U/L (46-116) Troponin I Quantitative < 0.017ng/mL (0.000-0.055) < 0.017ng/mL (0.000-0.055) < 0.017ng/mL (0.000-0.055) Total Protein 7.8g/dL (6.4-8.2) 6.9g/dL (6.4-8.2) Albumin 3.6g/dL (3.4-5.0) 3.1g/dL (3.4-5.0) Urine Collection Type Unknown Urine Color Yellow Urine Clarity Clear Urine pH 6.0 Urine Specific [place] 1.025 Urine Protein Negativemg/dL (NEG-TRACE) Urine Glucose (UA) Negativemg/dL (NEG) Urine Ketones (Stick) Negativemg/dL (NEG) Urine Blood Negative (NEG) Urine Nitrite Negative (NEG) Urine Bilirubin Negative (NEG) Urine Urobilinogen Dipstick 1.0mg/dL (0.2 mg/dL) Urine Leukocyte Esterase Small (NEG) Urine RBC 0/HPF (0-2) Urine WBC 5-10/HPF (0-4) Urine Squamous Epithelial Cells Mod/LPF Urine Bacteria Moderate/HPF (0-FEW) Urine Mucus Mod/LPF Urine Trichomonas Present Erythrocyte Sedimentation Rate 15 (0-25) Heparin Anti-Xa Act, Unfractionated 0.18IU/mL (0.30-0.70) BUN/Creatinine Ratio 15 (6-20) Albumin/Globulin Ratio 0.8 (1.0-1.7) Triglycerides Level 99mg/dL (0-150) Cholesterol Level 172mg/dL (0-200) LDL Cholesterol, Calculated 120mg/dL (0-100) VLDL Cholesterol, Calculated 20mg/dL (0-40) HDL Cholesterol 32mg/dL (40-60) Cholesterol/HDL Ratio 5.4 Laboratory Tests Test 12/23/16 13:35 12/23/16 20:10 12/24/16 04:45 Urine Collection Type Unknown Urine Color Yellow Urine Clarity Clear Urine pH 6.0 Urine Specific [place] 1.025 Urine Protein Negativemg/dL (NEG-TRACE) Urine Glucose (UA) Negativemg/dL (NEG) Urine Ketones (Stick) Negativemg/dL (NEG) Urine Blood Negative (NEG) Urine Nitrite Negative (NEG) Urine Bilirubin Negative (NEG) Urine Urobilinogen Dipstick 1.0mg/dL (0.2 mg/dL) Urine Leukocyte Esterase Small (NEG) Urine RBC 0/HPF (0-2) Urine WBC 5-10/HPF (0-4) Urine Squamous Epithelial Cells Mod/LPF Urine Bacteria Moderate/HPF (0-FEW) Urine Mucus Mod/LPF Urine Trichomonas Present Troponin I Quantitative < 0.017ng/mL (0.000-0.055) < 0.017ng/mL (0.000-0.055) White Blood Count 8.0x10^3/uL (4.0-11.0) Red Blood Count 5.06x10^6/uL (3.50-5.40) Hemoglobin 13.1g/dL (12.0-15.5) Hematocrit 41.5% (36.0-47.0) Mean Corpuscular Volume 82fL (79-100) Mean Corpuscular Hemoglobin 26pg (25-35) Mean Corpuscular Hemoglobin Concent 32g/dL (31-37) Red Cell Distribution Width 14.8% (11.5-14.5) Platelet Count 187x10^3/uL (140-400) Neutrophils (%) (Auto) 63% (31-73) Lymphocytes (%) (Auto) 26% (24-48) Monocytes (%) (Auto) 6% (0-9) Eosinophils (%) (Auto) 5% (0-3) Basophils (%) (Auto) 1% (0-3) Neutrophils # (Auto) 5.0x10^3uL (1.8-7.7) Lymphocytes # (Auto) 2.1x10^3/uL (1.0-4.8) Monocytes # (Auto) 0.4x10^3/uL (0.0-1.1) Eosinophils # (Auto) 0.4x10^3/uL (0.0-0.7) Basophils # (Auto) 0.1x10^3/uL (0.0-0.2) Erythrocyte Sedimentation Rate 15 (0-25) Heparin Anti-Xa Act, Unfractionated 0.18IU/mL (0.30-0.70) Sodium Level 142mmol/L (136-145) Potassium Level 3.7mmol/L (3.5-5.1) Chloride Level 105mmol/L (98-107) Carbon Dioxide Level 28mmol/L (21-32) Anion Gap 9 (6-14) Blood Urea Nitrogen 12mg/dL (7-20) Creatinine 0.8mg/dL (0.6-1.0) Estimated GFR (Cockcroft-Gault) 92.2 BUN/Creatinine Ratio 15 (6-20) Glucose Level 102mg/dL (70-99) Calcium Level 8.5mg/dL (8.5-10.1) Total Bilirubin 0.4mg/dL (0.2-1.0) Aspartate Amino Transf (AST/SGOT) 14U/L (15-37) Alanine Aminotransferase (ALT/SGPT) 27U/L (14-59) Alkaline Phosphatase 65U/L (46-116) Total Protein 6.9g/dL (6.4-8.2) Albumin 3.1g/dL (3.4-5.0) Albumin/Globulin Ratio 0.8 (1.0-1.7) Triglycerides Level 99mg/dL (0-150) Cholesterol Level 172mg/dL (0-200) LDL Cholesterol, Calculated 120mg/dL (0-100) VLDL Cholesterol, Calculated 20mg/dL (0-40) HDL Cholesterol 32mg/dL (40-60) Cholesterol/HDL Ratio 5.4 Medications Current Medications Aspirin (Children'S Aspirin) 324 mg 1X ONCE PO Last administered on 12/23/16t 13:38; Start 12/23/16 at 13:30; Stop 12/23/16 at 13:31; Status DC Acetaminophen/ Hydrocodone Bitart (Lortab 5/325) 2 tab 1X ONCE PO ; Start at 13:30; Stop 12/23/16 at 13:48; Status DC Heparin Sodium (Porcine) 4000 unit 4,000 unit 1X ONCE IV Last administered on 12/23/16 13:40; Start 12/23/16 at 13:30; Stop 12/24/16 at 08:43; Status DC Heparin Sodium/ Dextrose 500 ml @ 0 mls/hr CONT PRN IV SEE I/O RECORD Last administered on 12/23/16 13:47; Start 12/23/16 at 13:30; Stop 12/24/16 at 08:43; Status DC Heparin Sodium (Porcine) (Heparin Sodium) 2,650 unit PRN Q6HRS PRN IV FOR UFH LEVEL LESS THAN 0.2 Last administered on 12/24/16 07:33; Start 12/23/16 at 13:30 ; Stop 12/24/16 at 08:43; Status DC Morphine Sulfate 4 mg 1X STAT IV Last administered on 12/23/16 14:03; Start at 13:47; Stop 12/23/16 at 13:50; Status DC Morphine Sulfate 4 mg STK-MED ONCE .ROUTE ; Start 12/23/16 at 13:50; Stop at 13:51; Status DC Ondansetron HCl (Zofran) 4 mg PRN Q8HRS PRN IV NAUSEA/VOMITING; Start 12/23/16 at 14:30; Stop 12/24/16 at 07:43; Status DC Morphine Sulfate 4 mg 4 mg PRN Q2HR PRN IV PAIN Last administered on 12/23/16 20:22; Start 12/23/16 at 14:30; Stop 12/24/16 at 14:29 Sodium Chloride (Iv Sodium Chloride 0.9% 1000ml Bag) 1,000 ml @ 125 mls/hr Q8H IV Last administered on 12/24/16 06:27; Start 12/23/16 at 14:27; Stop 12/24/16 at 14:26 Acetaminophen (Tylenol) 650 mg PRN Q4HRS PRN PO FEVER; Start 12/23/16 at 14:30; Stop 12/24/16 at 14:29 Nitroglycerin (Nitrostat) 0.4 mg PRN Q5MIN PRN SL CHEST PAIN; Start 12/23/16 at 14:30; Stop 12/24/16 at 14:29 Metoprolol Tartrate (Lopressor) 25 mg BID PO Last administered on 12/24/16 09: 03; Start 12/23/16 at 21:00 Amlodipine Besylate (Norvasc) 2.5 mg DAILY PO Last administered on 12/24/16 09: 04; Start 12/24/16 at 09:00 Carvedilol (Coreg) 12.5 mg BIDWMEALS PO Last administered on 12/24/16 09:04; Start 12/23/16 at 20:00 Clonidine HCl (Catapres) 0.1 mg BID PO Last administered on 12/24/16 09:04; Start 12/23/16 at 21:00 Hydrochlorothiazide (Microzide) 12.5 mg DAILY PO Last administered on 12/24/16 09:04; Start 12/24/16 at 09:00 Famotidine (Pepcid) 20 mg HS PO Last administered on 12/23/16 20:23; Start 12/23 at 21:00; Stop 12/23/16 at 22:56; Status DC Metronidazole (Flagyl) 500 mg TID PO Last administered on 12/24/16 09:05; Start 12/23/16 at 21:30 Famotidine (Pepcid) 20 mg BID PO Last administered on 12/24/16 09:05; Start 12/24/16 at 09:00 Calcium Carbonate/ Glycine (Tums) 500 mg PRN AFTMEALHC PRN PO INDIGESTION; Start 12/23/16 at 23:00 Throat Lozenges (Cepacol Sore Throat Lozenge) 1 daron PRN Q2HRS PRN PO SORE THROAT Last administered on 12/24/16 03:47; Start 12/24/16 at 03:45 Ondansetron HCl (Zofran) 4 mg PRN Q6HRS PRN IV NAUSEA/VOMITING; Start 12/24/16 at 07:42 Lidocaine (Lidoderm) 1 patch DAILY TD Last administered on 12/24/16 09:03; Start 12/24/16 at 09:00 Oxycodone/ Acetaminophen (Percocet 5/325) 1 tab PRN Q4HRS PRN PO PAIN; Start at 07:45 Naproxen (Naprosyn) 500 mg BID PO Last administered on 12/24/16t 09:05; Start at 09:00 Active Scripts Active Reported Norvasc (Amlodipine Besylate) 2.5 Mg Tablet 2.5 Mg PO DAILY Clonidine Hcl 0.1 Mg Tablet 0.1 Mg PO BID Ranitidine Hcl 150 Mg Tablet 150 Mg PO DAILY Hydrochlorothiazide Capsule (Hydrochlorothiazide) 12.5 Mg Capsule 12.5 Mg PO DAILY Coreg (Carvedilol) 12.5 Mg Tablet 12.5 Mg PO BIDWMEALS Vitals/I & O Vital Sign - Last 24 Hours 12/23/16 12/23/16 12/23/16 12/23/16 13:30 13:40 14:03 14:10 Pulse 80 82 73 Resp 17 B/P 161/97 186/113 187/105 Pulse Ox 96 O2 Delivery Room Air Room Air Room Air 12/23/16 12/23/16 12/23/16 12/23/16 14:40 15:10 15:40 16:10 Pulse 77 71 69 73 Resp 20 20 23 B/P 167/109 170/111 167/108 171/113 Pulse Ox 98 O2 Delivery Room Air Room Air Room Air 12/23/16 12/23/16 12/23/16 12/23/16 16:31 17:01 17:03 17:50 Temp 97.5 97.5 Pulse 74 84 73 81 Resp 13 18 B/P 178/104 167/111 162/107 170/109 Pulse Ox 97 98 97 O2 Delivery Room Air Room Air Room Air 12/23/16 12/23/16 12/23/16 12/23/16 18:30 19:55 20:00 20:22 Temp 98.1 98.1 Pulse 81 Resp 18 B/P 163/92 Pulse Ox 97 97 O2 Delivery Room Air Room Air Room Air 12/23/16 12/23/16 12/23/16 12/23/16 20:23 20:23 20:23 20:52 Pulse 81 81 81 B/P 163/92 163/92 163/92 Pulse Ox 97 12/23/16 12/24/16 12/24/165/17 22:30 03:30 07:00 09:03 Temp 98.3 98.4 98.5 98.3 98.4 98.5 Pulse 79 81 72 Resp 18 18 18 B/P 129/95 133/90 150/91 159/92 Pulse Ox 95 98 95 O2 Delivery Room Air Room Air Room Air 12/24/16 12/24/16 12/24/16 12/24/16 09:04 09:04 09:04 11:00 Temp 98.9 98.9 Pulse 78 72 Resp 18 B/P 159/92 159/92 119/72 Pulse Ox 95 O2 Delivery Room Air Intake and Output 12/23/16 12/23/16 12/24/16 15:00 23:00 07:00 Intake Total 484 ml Balance 484 ml SENAIT MUNOZ MD Dec 24, 2016 13:01
--- NOTE | 2016-12-24 14:09 | PDOC2 ---
CONSULT Date of Consult Date of Consult DATE: 12/24/16 TIME: 13:58 Reason for Consult Reason for Consult: Intermittent chest pain and abnormal EKG Referring Physician Referring Physician: Dr. Garcia Identification/Chief Complaint Chief Complaint Intermittent chest pain Source Source: Patient History of Present Illness Reason for Visit: Ms. Troy is a 51 year old AAF who presented to the ED with recurrent mid sternal chest pains. Pt reports severe pain that sometimes is associated with exertion over the past few days. Pt reports a 6/10 pain. Pt reports she feels SOB with these episodes. The most recent episode lasted around 5 minutes. Today, the patient is resting comfortable in her bed. Denies having any more chest pain or SOB since arriving to the hospital. Pt has had a recent stress test in the office which was ok. Past Medical History Cardiovascular: HTN GI: GERD Heme/Onc: No pertinent hx Hepatobiliary: No pertinent hx Psych: No pertinent hx Musculoskeletal: low back pain Family History Family History: Coronary Artery Disease Social History No ALCOHOL: none Current Problem List Problem List Problems Medical Problems: (1) Abnormal EKG Status: Acute (2) Intermittent chest pain Status: Acute (3) Low back pain Status: Acute Current Medications Current Medications Current Medications Aspirin (Children'S Aspirin) 324 mg 1X ONCE PO Last administered on 12/23/16 13:38; Start 12/23/16 at 13:30; Stop 12/23/16 at 13:31; Status DC Acetaminophen/ Hydrocodone Bitart (Lortab 5/325) 2 tab 1X ONCE PO ; Start at 13:30; Stop 12/23/16 at 13:48; Status DC Heparin Sodium (Porcine) 4000 unit 4,000 unit 1X ONCE IV Last administered on 12/23/16 13:40; Start 12/23/16 at 13:30; Stop 12/24/16 at 08:43; Status DC Heparin Sodium/ Dextrose 500 ml @ 0 mls/hr CONT PRN IV SEE I/O RECORD Last administered on 12/23/16 13:47; Start 12/23/16 at 13:30; Stop 12/24/16 at 08:43; Status DC Heparin Sodium (Porcine) (Heparin Sodium) 2,650 unit PRN Q6HRS PRN IV FOR UFH LEVEL LESS THAN 0.2 Last administered on 12/24/16 07:33; Start 12/23/16 at 13:30 ; Stop 12/24/16 at 08:43; Status DC Morphine Sulfate 4 mg 1X STAT IV Last administered on 12/23/16 14:03; Start at 13:47; Stop 12/23/16 at 13:50; Status DC Morphine Sulfate 4 mg STK-MED ONCE .ROUTE ; Start 12/23/16 at 13:50; Stop at 13:51; Status DC Ondansetron HCl (Zofran) 4 mg PRN Q8HRS PRN IV NAUSEA/VOMITING; Start 12/23/16 at 14:30; Stop 12/24/16 at 07:43; Status DC Morphine Sulfate 4 mg 4 mg PRN Q2HR PRN IV PAIN Last administered on 12/23/16 20:22; Start 12/23/16 at 14:30; Stop 12/24/16 at 14:29 Sodium Chloride (Iv Sodium Chloride 0.9% 1000ml Bag) 1,000 ml @ 125 mls/hr Q8H IV Last administered on 12/24/16 06:27; Start 12/23/16 at 14:27; Stop 12/24/16 at 14:26 Acetaminophen (Tylenol) 650 mg PRN Q4HRS PRN PO FEVER; Start 12/23/16 at 14:30; Stop 12/24/16 at 14:29 Nitroglycerin (Nitrostat) 0.4 mg PRN Q5MIN PRN SL CHEST PAIN; Start 12/23/16 at 14:30; Stop 12/24/16 at 14:29 Metoprolol Tartrate (Lopressor) 25 mg BID PO Last administered on 12/24/16 09: 03; Start 12/23/16 at 21:00 Amlodipine Besylate (Norvasc) 2.5 mg DAILY PO Last administered on 12/24/16 09: 04; Start 12/24/16 at 09:00 Carvedilol (Coreg) 12.5 mg BIDWMEALS PO Last administered on 12/24/16 09:04; Start 12/23/16 at 20:00 Clonidine HCl (Catapres) 0.1 mg BID PO Last administered on 12/24/16 09:04; Start 12/23/16 at 21:00 Hydrochlorothiazide (Microzide) 12.5 mg DAILY PO Last administered on 12/24/16 09:04; Start 12/24/16 at 09:00 Famotidine (Pepcid) 20 mg HS PO Last administered on 12/23/16 20:23; Start 12/23 at 21:00; Stop 12/23/16 at 22:56; Status DC Metronidazole (Flagyl) 500 mg TID PO Last administered on 12/24/16 09:05; Start 12/23/16 at 21:30 Famotidine (Pepcid) 20 mg BID PO Last administered on 12/24/16 09:05; Start 12/24/16 at 09:00 Calcium Carbonate/ Glycine (Tums) 500 mg PRN AFTMEALHC PRN PO INDIGESTION; Start 12/23/16 at 23:00 Throat Lozenges (Cepacol Sore Throat Lozenge) 1 daron PRN Q2HRS PRN PO SORE THROAT Last administered on 12/24/16 03:47; Start 12/24/16 at 03:45 Ondansetron HCl (Zofran) 4 mg PRN Q6HRS PRN IV NAUSEA/VOMITING; Start 12/24/16 at 07:42 Lidocaine (Lidoderm) 1 patch DAILY TD Last administered on 12/24/16 09:03; Start 12/24/16 at 09:00 Oxycodone/ Acetaminophen (Percocet 5/325) 1 tab PRN Q4HRS PRN PO PAIN; Start at 07:45 Naproxen (Naprosyn) 500 mg BID PO Last administered on 12/24/16 09:05; Start at 09:00 Active Scripts Active Reported Norvasc (Amlodipine Besylate) 2.5 Mg Tablet 2.5 Mg PO DAILY Clonidine Hcl 0.1 Mg Tablet 0.1 Mg PO BID Ranitidine Hcl 150 Mg Tablet 150 Mg PO DAILY Hydrochlorothiazide Capsule (Hydrochlorothiazide) 12.5 Mg Capsule 12.5 Mg PO DAILY Coreg (Carvedilol) 12.5 Mg Tablet 12.5 Mg PO BIDWMEALS Allergies Allergies: Coded Allergies: No Known Drug Allergies (Unverified , 01/21/16) ROS ENDOCRINE: YES: Other, Unexpected Weight Changes (has increase in weight) Respiratory: YES: SOB with excertion, Shortness of breath, No: Cough, Hemoptysis, Orthopnea, Other, Pleuritic Pain, Sputum Changes, Stridor, Tachypnea, Wheezing Cardiovascular: yes Chest Pain, No Edema, No Lt Headedness, No Orthopnea, No Other, No Palpitations, No Paroxysmal Noc. Dyspnea Gastrointestinal: Yes Nausea, Yes Vomiting Physical Exam General: Alert, Oriented X3, Cooperative, No acute distress HEENT: Atraumatic, PERRLA Lungs: Clear to auscultation, Normal air movement Heart: Regular rate, Normal S1, Normal S2, No murmurs Abdomen: Normal bowel sounds, Soft, No tenderness Extremities: No clubbing, No edema Skin: No rashes, No significant lesion Neuro: Normal speech Vitals VITALS Vital Signs Date Time Temp Pulse Resp B/P Pulse Ox O2 Delivery O2 Flow Rate FiO2 12/24/16 11:00 98.9 72 18 119/72 95 Room Air 98.9 Labs Labs Laboratory Tests Test 12/23/16 12:40 12/23/16 13:35 12/23/16 20:10 12/24/16 04:45 White Blood Count 8.3x10^3/uL (4.0-11.0) 8.0x10^3/uL (4.0-11.0) Red Blood Count 5.18x10^6/uL (3.50-5.40) 5.06x10^6/uL (3.50-5.40) Hemoglobin 13.3g/dL (12.0-15.5) 13.1g/dL (12.0-15.5) Hematocrit 42.2% (36.0-47.0) 41.5% (36.0-47.0) Mean Corpuscular Volume 81fL (79-100) 82fL (79-100) Mean Corpuscular Hemoglobin 26pg (25-35) 26pg (25-35) Mean Corpuscular Hemoglobin Concent 32g/dL (31-37) 32g/dL (31-37) Red Cell Distribution Width 15.3% (11.5-14.5) 14.8% (11.5-14.5) Platelet Count 205x10^3/uL (140-400) 187x10^3/uL (140-400) Neutrophils (%) (Auto) 69% (31-73) 63% (31-73) Lymphocytes (%) (Auto) 22% (24-48) 26% (24-48) Monocytes (%) (Auto) 4% (0-9) 6% (0-9) Eosinophils (%) (Auto) 4% (0-3) 5% (0-3) Basophils (%) (Auto) 1% (0-3) 1% (0-3) Neutrophils # (Auto) 5.7x10^3uL (1.8-7.7) 5.0x10^3uL (1.8-7.7) Lymphocytes # (Auto) 1.9x10^3/uL (1.0-4.8) 2.1x10^3/uL (1.0-4.8) Monocytes # (Auto) 0.4x10^3/uL (0.0-1.1) 0.4x10^3/uL (0.0-1.1) Eosinophils # (Auto) 0.3x10^3/uL (0.0-0.7) 0.4x10^3/uL (0.0-0.7) Basophils # (Auto) 0.1x10^3/uL (0.0-0.2) 0.1x10^3/uL (0.0-0.2) Prothrombin Time 13.5SEC (11.7-14.0) Prothromb Time International Ratio 1.1 (0.8-1.1) Activated Partial Thromboplast Time 33SEC (24-38) Sodium Level 143mmol/L (136-145) 142mmol/L (136-145) Potassium Level 4.2mmol/L (3.5-5.1) 3.7mmol/L (3.5-5.1) Chloride Level 105mmol/L (98-107) 105mmol/L (98-107) Carbon Dioxide Level 27mmol/L (21-32) 28mmol/L (21-32) Anion Gap 11 (6-14) 9 (6-14) Blood Urea Nitrogen 13mg/dL (7-20) 12mg/dL (7-20) Creatinine 0.9mg/dL (0.6-1.0) 0.8mg/dL (0.6-1.0) Estimated GFR (Cockcroft-Gault) 80.5 92.2 Glucose Level 139mg/dL (70-99) 102mg/dL (70-99) Calcium Level 9.1mg/dL (8.5-10.1) 8.5mg/dL (8.5-10.1) Total Bilirubin 0.5mg/dL (0.2-1.0) 0.4mg/dL (0.2-1.0) Direct Bilirubin 0.1mg/dL (0.0-0.2) Aspartate Amino Transf (AST/SGOT) 33U/L (15-37) 14U/L (15-37) Alanine Aminotransferase (ALT/SGPT) 30U/L (14-59) 27U/L (14-59) Alkaline Phosphatase 78U/L (46-116) 65U/L (46-116) Troponin I Quantitative < 0.017ng/mL (0.000-0.055) < 0.017ng/mL (0.000-0.055) < 0.017ng/mL (0.000-0.055) Total Protein 7.8g/dL (6.4-8.2) 6.9g/dL (6.4-8.2) Albumin 3.6g/dL (3.4-5.0) 3.1g/dL (3.4-5.0) Urine Collection Type Unknown Urine Color Yellow Urine Clarity Clear Urine pH 6.0 Urine Specific [place] 1.025 Urine Protein Negativemg/dL (NEG-TRACE) Urine Glucose (UA) Negativemg/dL (NEG) Urine Ketones (Stick) Negativemg/dL (NEG) Urine Blood Negative (NEG) Urine Nitrite Negative (NEG) Urine Bilirubin Negative (NEG) Urine Urobilinogen Dipstick 1.0mg/dL (0.2 mg/dL) Urine Leukocyte Esterase Small (NEG) Urine RBC 0/HPF (0-2) Urine WBC 5-10/HPF (0-4) Urine Squamous Epithelial Cells Mod/LPF Urine Bacteria Moderate/HPF (0-FEW) Urine Mucus Mod/LPF Urine Trichomonas Present Erythrocyte Sedimentation Rate 15 (0-25) Heparin Anti-Xa Act, Unfractionated 0.18IU/mL (0.30-0.70) BUN/Creatinine Ratio 15 (6-20) Albumin/Globulin Ratio 0.8 (1.0-1.7) Triglycerides Level 99mg/dL (0-150) Cholesterol Level 172mg/dL (0-200) LDL Cholesterol, Calculated 120mg/dL (0-100) VLDL Cholesterol, Calculated 20mg/dL (0-40) HDL Cholesterol 32mg/dL (40-60) Cholesterol/HDL Ratio 5.4 Laboratory Tests Test 12/23/16 20:10 12/24/16 04:45 Troponin I Quantitative < 0.017ng/mL (0.000-0.055) < 0.017ng/mL (0.000-0.055) White Blood Count 8.0x10^3/uL (4.0-11.0) Red Blood Count 5.06x10^6/uL (3.50-5.40) Hemoglobin 13.1g/dL (12.0-15.5) Hematocrit 41.5% (36.0-47.0) Mean Corpuscular Volume 82fL (79-100) Mean Corpuscular Hemoglobin 26pg (25-35) Mean Corpuscular Hemoglobin Concent 32g/dL (31-37) Red Cell Distribution Width 14.8% (11.5-14.5) Platelet Count 187x10^3/uL (140-400) Neutrophils (%) (Auto) 63% (31-73) Lymphocytes (%) (Auto) 26% (24-48) Monocytes (%) (Auto) 6% (0-9) Eosinophils (%) (Auto) 5% (0-3) Basophils (%) (Auto) 1% (0-3) Neutrophils # (Auto) 5.0x10^3uL (1.8-7.7) Lymphocytes # (Auto) 2.1x10^3/uL (1.0-4.8) Monocytes # (Auto) 0.4x10^3/uL (0.0-1.1) Eosinophils # (Auto) 0.4x10^3/uL (0.0-0.7) Basophils # (Auto) 0.1x10^3/uL (0.0-0.2) Erythrocyte Sedimentation Rate 15 (0-25) Heparin Anti-Xa Act, Unfractionated 0.18IU/mL (0.30-0.70) Sodium Level 142mmol/L (136-145) Potassium Level 3.7mmol/L (3.5-5.1) Chloride Level 105mmol/L (98-107) Carbon Dioxide Level 28mmol/L (21-32) Anion Gap 9 (6-14) Blood Urea Nitrogen 12mg/dL (7-20) Creatinine 0.8mg/dL (0.6-1.0) Estimated GFR (Cockcroft-Gault) 92.2 BUN/Creatinine Ratio 15 (6-20) Glucose Level 102mg/dL (70-99) Calcium Level 8.5mg/dL (8.5-10.1) Total Bilirubin 0.4mg/dL (0.2-1.0) Aspartate Amino Transf (AST/SGOT) 14U/L (15-37) Alanine Aminotransferase (ALT/SGPT) 27U/L (14-59) Alkaline Phosphatase 65U/L (46-116) Total Protein 6.9g/dL (6.4-8.2) Albumin 3.1g/dL (3.4-5.0) Albumin/Globulin Ratio 0.8 (1.0-1.7) Triglycerides Level 99mg/dL (0-150) Cholesterol Level 172mg/dL (0-200) LDL Cholesterol, Calculated 120mg/dL (0-100) VLDL Cholesterol, Calculated 20mg/dL (0-40) HDL Cholesterol 32mg/dL (40-60) Cholesterol/HDL Ratio 5.4 Assessment/Plan Assessment/Plan Assessment: 1. Chest pain r/o ACS 2. Obesity BMI 43 3. Acute on Chronic back pain Plans: - Echo done today - Troponin negative x3; Recent stress test done in the office which was ok - From a cardiology standpoint, ok with discharge when the medicine team deems it ok. There is no other cardiac testing that needs to be done on this admission. - Ok with restarting patient's Naproxen for pain - Pt needs to follow up with my office in 2-3 weeks. Thank you for asking me to participate in the care of this pt. JADYN PAULINO MD Dec 24, 2016 14:09
[2016-12-24] MEDS ORDERED: METR500T PO (14:32)
--- NOTE | 2016-12-24 14:35 | PDOC3 ---
Discharge Summary Visit Information Date of Admission: Dec 23, 2016 Date of Discharge: Dec 24, 2016 Admitting Diagnosis Comment: 1. Chest pain r.o ACS 2. Obesity BMI 43 3. Acute on chronic back pain 4. Trichomoniasis Final Diagnosis Problems Medical Problems: (1) Abnormal EKG Status: Acute (2) Intermittent chest pain Status: Acute (3) Low back pain Status: Acute (4) Trichomonas contact, treated Status: Acute Brief Hospital Course Allergies Allergies Coded Allergies Type Severity Reaction Last Updated Verified No Known Drug Allergies 01/21/16 No Vital Signs Vital Signs Date Time Temp Pulse Resp B/P Pulse Ox O2 Delivery O2 Flow Rate FiO2 12/24/16 11:00 98.9 72 18 119/72 95 Room Air 98.9 Lab Results Laboratory Tests Test 12/23/16 12:40 12/23/16 13:35 12/23/16 20:10 12/24/16 04:45 White Blood Count 8.3x10^3/uL (4.0-11.0) 8.0x10^3/uL (4.0-11.0) Red Blood Count 5.18x10^6/uL (3.50-5.40) 5.06x10^6/uL (3.50-5.40) Hemoglobin 13.3g/dL (12.0-15.5) 13.1g/dL (12.0-15.5) Hematocrit 42.2% (36.0-47.0) 41.5% (36.0-47.0) Mean Corpuscular Volume 81fL (79-100) 82fL (79-100) Mean Corpuscular Hemoglobin 26pg (25-35) 26pg (25-35) Mean Corpuscular Hemoglobin Concent 32g/dL (31-37) 32g/dL (31-37) Red Cell Distribution Width 15.3% (11.5-14.5) 14.8% (11.5-14.5) Platelet Count 205x10^3/uL (140-400) 187x10^3/uL (140-400) Neutrophils (%) (Auto) 69% (31-73) 63% (31-73) Lymphocytes (%) (Auto) 22% (24-48) 26% (24-48) Monocytes (%) (Auto) 4% (0-9) 6% (0-9) Eosinophils (%) (Auto) 4% (0-3) 5% (0-3) Basophils (%) (Auto) 1% (0-3) 1% (0-3) Neutrophils # (Auto) 5.7x10^3uL (1.8-7.7) 5.0x10^3uL (1.8-7.7) Lymphocytes # (Auto) 1.9x10^3/uL (1.0-4.8) 2.1x10^3/uL (1.0-4.8) Monocytes # (Auto) 0.4x10^3/uL (0.0-1.1) 0.4x10^3/uL (0.0-1.1) Eosinophils # (Auto) 0.3x10^3/uL (0.0-0.7) 0.4x10^3/uL (0.0-0.7) Basophils # (Auto) 0.1x10^3/uL (0.0-0.2) 0.1x10^3/uL (0.0-0.2) Prothrombin Time 13.5SEC (11.7-14.0) Prothromb Time International Ratio 1.1 (0.8-1.1) Activated Partial Thromboplast Time 33SEC (24-38) Sodium Level 143mmol/L (136-145) 142mmol/L (136-145) Potassium Level 4.2mmol/L (3.5-5.1) 3.7mmol/L (3.5-5.1) Chloride Level 105mmol/L (98-107) 105mmol/L (98-107) Carbon Dioxide Level 27mmol/L (21-32) 28mmol/L (21-32) Anion Gap 11 (6-14) 9 (6-14) Blood Urea Nitrogen 13mg/dL (7-20) 12mg/dL (7-20) Creatinine 0.9mg/dL (0.6-1.0) 0.8mg/dL (0.6-1.0) Estimated GFR (Cockcroft-Gault) 80.5 92.2 Glucose Level 139mg/dL (70-99) 102mg/dL (70-99) Calcium Level 9.1mg/dL (8.5-10.1) 8.5mg/dL (8.5-10.1) Total Bilirubin 0.5mg/dL (0.2-1.0) 0.4mg/dL (0.2-1.0) Direct Bilirubin 0.1mg/dL (0.0-0.2) Aspartate Amino Transf (AST/SGOT) 33U/L (15-37) 14U/L (15-37) Alanine Aminotransferase (ALT/SGPT) 30U/L (14-59) 27U/L (14-59) Alkaline Phosphatase 78U/L (46-116) 65U/L (46-116) Troponin I Quantitative < 0.017ng/mL (0.000-0.055) < 0.017ng/mL (0.000-0.055) < 0.017ng/mL (0.000-0.055) Total Protein 7.8g/dL (6.4-8.2) 6.9g/dL (6.4-8.2) Albumin 3.6g/dL (3.4-5.0) 3.1g/dL (3.4-5.0) Urine Collection Type Unknown Urine Color Yellow Urine Clarity Clear Urine pH 6.0 Urine Specific [place] 1.025 Urine Protein Negativemg/dL (NEG-TRACE) Urine Glucose (UA) Negativemg/dL (NEG) Urine Ketones (Stick) Negativemg/dL (NEG) Urine Blood Negative (NEG) Urine Nitrite Negative (NEG) Urine Bilirubin Negative (NEG) Urine Urobilinogen Dipstick 1.0mg/dL (0.2 mg/dL) Urine Leukocyte Esterase Small (NEG) Urine RBC 0/HPF (0-2) Urine WBC 5-10/HPF (0-4) Urine Squamous Epithelial Cells Mod/LPF Urine Bacteria Moderate/HPF (0-FEW) Urine Mucus Mod/LPF Urine Trichomonas Present Erythrocyte Sedimentation Rate 15 (0-25) Heparin Anti-Xa Act, Unfractionated 0.18IU/mL (0.30-0.70) BUN/Creatinine Ratio 15 (6-20) Albumin/Globulin Ratio 0.8 (1.0-1.7) Triglycerides Level 99mg/dL (0-150) Cholesterol Level 172mg/dL (0-200) LDL Cholesterol, Calculated 120mg/dL (0-100) VLDL Cholesterol, Calculated 20mg/dL (0-40) HDL Cholesterol 32mg/dL (40-60) Cholesterol/HDL Ratio 5.4 Laboratory Tests Test 12/23/16 20:10 12/24/16 04:45 Troponin I Quantitative < 0.017ng/mL (0.000-0.055) < 0.017ng/mL (0.000-0.055) White Blood Count 8.0x10^3/uL (4.0-11.0) Red Blood Count 5.06x10^6/uL (3.50-5.40) Hemoglobin 13.1g/dL (12.0-15.5) Hematocrit 41.5% (36.0-47.0) Mean Corpuscular Volume 82fL (79-100) Mean Corpuscular Hemoglobin 26pg (25-35) Mean Corpuscular Hemoglobin Concent 32g/dL (31-37) Red Cell Distribution Width 14.8% (11.5-14.5) Platelet Count 187x10^3/uL (140-400) Neutrophils (%) (Auto) 63% (31-73) Lymphocytes (%) (Auto) 26% (24-48) Monocytes (%) (Auto) 6% (0-9) Eosinophils (%) (Auto) 5% (0-3) Basophils (%) (Auto) 1% (0-3) Neutrophils # (Auto) 5.0x10^3uL (1.8-7.7) Lymphocytes # (Auto) 2.1x10^3/uL (1.0-4.8) Monocytes # (Auto) 0.4x10^3/uL (0.0-1.1) Eosinophils # (Auto) 0.4x10^3/uL (0.0-0.7) Basophils # (Auto) 0.1x10^3/uL (0.0-0.2) Erythrocyte Sedimentation Rate 15 (0-25) Heparin Anti-Xa Act, Unfractionated 0.18IU/mL (0.30-0.70) Sodium Level 142mmol/L (136-145) Potassium Level 3.7mmol/L (3.5-5.1) Chloride Level 105mmol/L (98-107) Carbon Dioxide Level 28mmol/L (21-32) Anion Gap 9 (6-14) Blood Urea Nitrogen 12mg/dL (7-20) Creatinine 0.8mg/dL (0.6-1.0) Estimated GFR (Cockcroft-Gault) 92.2 BUN/Creatinine Ratio 15 (6-20) Glucose Level 102mg/dL (70-99) Calcium Level 8.5mg/dL (8.5-10.1) Total Bilirubin 0.4mg/dL (0.2-1.0) Aspartate Amino Transf (AST/SGOT) 14U/L (15-37) Alanine Aminotransferase (ALT/SGPT) 27U/L (14-59) Alkaline Phosphatase 65U/L (46-116) Total Protein 6.9g/dL (6.4-8.2) Albumin 3.1g/dL (3.4-5.0) Albumin/Globulin Ratio 0.8 (1.0-1.7) Triglycerides Level 99mg/dL (0-150) Cholesterol Level 172mg/dL (0-200) LDL Cholesterol, Calculated 120mg/dL (0-100) VLDL Cholesterol, Calculated 20mg/dL (0-40) HDL Cholesterol 32mg/dL (40-60) Cholesterol/HDL Ratio 5.4 Brief Hospital Course Ms. Troy is a 51 old AA obese female, admitted for CP, low risk, recent MPI neg, cards consulted,echo done, normal. Cleared to go home Hx back pain, better with lidoderm patch, on NAproxen at home, to cont. Incidental trichomoniasis, will go home on flagyl 21 tabs TID x 7 days Dw RN, Pt seen and examined 2 notes today - see my earlier progress note Time 31 mins COnsults: cards Proc: echo Dispo: home Discharge Information Condition at Discharge: Improved, Stable Disposition/Orders: D/C to Home Scheduled Amlodipine Besylate (Norvasc) 2.5 MG PO DAILY (Reported) Carvedilol (Coreg) 12.5 MG PO BIDWMEALS (Reported) Clonidine Hcl (Clonidine Hcl) 0.1 MG PO BID (Reported) Hydrochlorothiazide (Hydrochlorothiazide Capsule ) 12.5 MG PO DAILY (Reported ) Ranitidine Hcl (Ranitidine Hcl) 150 MG PO DAILY (Reported) SENAIT MUNOZ MD Dec 24, 2016 14:35
[2016-12-24 15:00] VITALS: BP 134/84
[2016-12-24] MEDS ORDERED: LIDO700A4 TP (15:54)
[2016-12-24] MEDS ORDERED: METO25TA4 PO (15:54)
[2016-12-24] MEDS ORDERED: NAPR500T3 PO (15:56)
--- NOTE | 2016-12-24 19:17 | CARD ---
APPROVED REPORT EXAM: Two-dimensional and M-mode echocardiogram with Doppler and color Doppler. Other Information Quality : Average Rhythm : NSR INDICATION Chest Pain 2D DIMENSIONS RVDd3.5 (2.9-3.5cm)Left Atrium(2D)4.0 (1.6-4.0cm) IVSd0.9 (0.7-1.1cm)Aortic Root(2D)3.2 (2.0-3.7cm) LVDd4.8 (3.9-5.9cm)LVOT Diameter2.4 (1.8-2.4cm) PWd1.0 (0.7-1.1cm)LVDs3.2 (2.5-4.0cm) FS (%) 33.1 %SV65.7 ml LVEF(%)60.0 (>50%) Aortic Valve AoV Peak Joaquin.184.6cm/sAoV VTI35.9cm AO Peak GR.13.6mmHgLVOT Peak Joaquin.145.1cm/s LVOT VTI 30.01cmAO Mean GR.9mmHg VIRGILIO (VMAX)3.42bt6MZO (VTI)3.73cm2 Mitral Valve MV E Pyxmtmcp043.4cm/sMV DECEL [id number] MV A Nhereyep090.6cm/sMV E Mean Gr.3mmHg MV CLA21qmU/A Ratio1.0 MV A [id number] (PHT)3.00cm2 TDI E/Lateral E'20.0E/Medial E'15.7 Pulmonary Valve PV Peak Fyciqhaf069.8cm/sPV Peak Grad.6mmHg RVOT VTI18.9cm Tricuspid Valve TR P. Fzcrgpga851fk/sRAP [id number] TR Peak Gr.37hxBmXELU01vyCe Pulmonary Vein S1 Wnffwzxi98.4cm/sD2 Kvxzulhl06.0cm/s PVa [id number] LEFT VENTRICLE The left ventricle is normal size. There is normal left ventricular wall thickness. Left ventricle sy stolic function is normal. The Ejection Fraction is 60%. There is normal LV segmental wall motion. Th e left ventricular diastolic function and filling is normal for age. RIGHT VENTRICLE The right ventricle is normal size. The right ventricular systolic function is normal. ATRIA The left atrium size is normal. The right atrium size is normal. The interatrial septum is intact wit h no evidence for an atrial septal defect or patent foramen ovale as noted on 2-D or Doppler imaging. AORTIC VALVE The aortic valve is normal in structure and function. The aortic valve is trileaflet. Doppler and Col or Flow revealed no significant aortic regurgitation. There is no significant aortic valvular stenosi s. MITRAL VALVE The mitral valve is normal in structure and function. There is no mitral valve stenosis. Doppler and Color Flow revealed no mitral valve regurgitation noted. TRICUSPID VALVE The tricuspid valve is normal in structure and function. Doppler and Color Flow revealed trace tricus pid regurgitation. The PA pressure was estimated at 20 mmHg. There is no tricuspid valve stenosis. PULMONIC VALVE The pulmonic valve is not well visualized. Doppler and Color Flow revealed no pulmonic valvular regur gitation. There is no pulmonic valvular stenosis. GREAT VESSELS The aortic root is normal in size. Normal pulmonary venous flow (Doppler). The IVC is normal in size and collapses >50% with inspiration. PERICARDIAL EFFUSION There is a very small pericardial effusion. Critical Notification Critical Value: No <Conclusion> Left ventricle systolic function is normal. The Ejection Fraction is 60%. The right ventricle is normal size. The left atrium size is normal. The right atrium size is normal. The aortic valve is normal in structure and function. The aortic valve is trileaflet. The mitral valve is normal in structure and function. Doppler and Color Flow revealed trace tricuspid regurgitation. The PA pressure was estimated at 20 mmHg. The pulmonic valve is not well visualized. There is a very small pericardial effusion.
--- NOTE | 2016-12-25 17:20 | CONS ---
DATE OF CONSULTATION: 12/24/2016 ATTENDING PHYSICIAN: Dr. Garcia. The patient was seen at the request of Dr. Howell for rehab evaluation. 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 The patient was admitted on 12/23/2016, with recurrent midsternal chest pain, sometimes with exertion over the past few days. Yesterday with pain, pressure, midsternal, no nausea, diaphoresis, and not sleep reducible. She has seen Dr. Colin in the past. Family history of coronary artery disease in her mother. She reports of some weight gain over the past year, likely for diet related. Past medical history also includes hypertension, gastroesophageal reflux disease, and chronic lower back pain. Family history of coronary artery disease. She is not known allergic to any medication. The patient since admission had cardiac evaluation. Dr. Colin saw her and she had an echocardiogram done. Troponin is negative x 3. Recent stress test done in the office was alright. He felt from Cardiology point, she can be discharged to home when medically stable and he advised her to continue taking Naprosyn for pain. Chest x-ray failed to reveal any acute abnormality. The patient is not known allergic to any medication. 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 The patient denies any tingling, numbness in her feet. She denies any history of diabetes mellitus, chronic ethanol abuse, or exposure to chemotherapy medication. PHYSICAL EXAMINATION: Today revealed a middle-aged female. She is alert, oriented to time, place, person and circumstance and follows commands appropriately. She had tenderness to palpation over right lumbar paraspinal muscles extending over to sacroiliac joint area bilaterally. Straight leg raising test is negative bilaterally. She had 5/5 grade muscle strength in both upper and lower extremities and deep tendon reflexes are 1-2+ and symmetrical in the upper extremities and at both knees and absent at both ankles and she had equal perception of touch and pinprick sensation bilaterally. She had positive Tinel's sign over median nerve ____ and positive Phalen's sign at both wrists. Negative Tinel's sign over ulnar nerve at the wrist and elbow. She is independent with her mobility, but not using proper body mechanics during mobility. ASSESSMENT: A middle-aged female with recurrent chest pain and also chronic lower back pain from degenerative disk disease and degenerative joint disease of lumbar vertebrae without any clinical evidence of ongoing lumbar radiculopathy. She had clinical evidence of peripheral neuropathy and bilateral carpal tunnel syndrome. The patient with known hypertension, obesity and gastroesophageal reflux disease. RECOMMENDATIONS: I have advised her to take Naprosyn at least ____ upset her stomach as an anti-inflammatory medication and instructed her in a home program of physical modalities, trigger point massage and relax stretching exercise to her lower back muscles and reviewed with her proper body mechanics. She already had a lumbar corset for use, advise her not use it when she is sleeping. She apparently uses it while sleeping too. I have advised her to obtain a wrist cock-up splint and use it when she is having tingling and numbness in her hands, mainly at nighttime to scheduled her for electromyographic nerve conduction studies to conform carpal tunnel syndrome and she might need carpal tunnel release afterwards, her carpal tunnel syndrome maybe work related. I have given her a prescription of Flexeril for muscle spasm and hydrocodone for pain. Dr. Howell, I appreciate asking me to participate in the care of this interesting patient. I will be glad to follow her with you as needed for her rehabilitation. ALLAN BASS MD DR: KEISHA/joseph JOB#: [id number] / [id number] ELLIOTT Delaney MD, ALANNA MD
== END 2016-12-24 19:41 | disposition still patient (30) | DRG 313 ==
LOC: ER 12:29 → 2 NORTH 14:16
PROVIDERS: ADMIT Internal Medicine; ATTEND Internal Medicine
DX: R07.89 Other chest pain (principal); Z68.41 Body mass index [BMI] 40.0-44.9, adult; I10 Essential (primary) hypertension; E66.9 Obesity, unspecified; K21.9 Gastro-esophageal reflux disease without esophagitis; Z82.49 Family history of ischemic heart disease and other diseases of the circulatory system; A59.9 Trichomoniasis, unspecified; G56.03 Carpal tunnel syndrome, bilateral upper limbs; G62.9 Polyneuropathy, unspecified; G89.29 Other chronic pain; Z90.710 Acquired absence of both cervix and uterus; M51.36 Other intervertebral disc degeneration, lumbar region
CPT/HCPCS: 36415; 71020; 80048; 80053; 80061; 80076; 81001; 84484; 85027; 85520; 85610; 85651; 85730; 87086; 93005; 93306; 96374; 96375; 96376; J2270; J7030; 99285-25

== ENCOUNTER 2017-03-04 17:54 | Emergency (ER) | payer BC, OTHER ==
[~2017-03-04] VITALS: Ht 157.5 cm; Wt 107.6 kg
[~2017-03-04 17:54] MED LIST: AMLO2.5T2 PO; CARV12.5 PO; CLON0.1T PO; HYDR12.53 PO; LIDO700A4 TP; METO25TA4 PO; METR500T PO; NAPR500T3 PO; RANI150T2 PO
--- NOTE | 2017-03-04 18:59 | PHYS DOC ---
Past Medical History Past Medical History: GERD, Hypertension, Other Additional Past Medical Histor: SEASONAL ALLERGIES Past Surgical History: Hysterectomy Alcohol Use: Occasionally Drug Use: None Adult General Chief Complaint Chief Complaint: DENTAL PROBLEM HPI HPI Patient is a 51 year old female presents to the emergency department stating that she is having right upper back dental pain and discomfort. Patient also states that she is having a headache. Patient was noted to have elevated blood pressure here in the emergency department. Patient also states that yesterday she was having shortness of air difficulty breathing. Today she states that that is resolved. Patient also has bilateral lower leg swelling in which patient states this is because she works 2 jobs. Patient denies any abdominal pain or discomfort but she does state that she has nausea, denies any vomiting. Patient continues to state that she drove herself here to the emergency department. Review of Systems Review of Systems Constitutional: Denies fever or chills [] Eyes: Denies change in visual acuity, redness, or eye pain [] HENT: Denies nasal congestion or sore throat. C/o dental pain Respiratory: Denies cough or shortness of breath [] Cardiovascular: No additional information not addressed in HPI [] GI: Denies abdominal pain, nausea, vomiting, bloody stools or diarrhea [] : Denies dysuria or hematuria [] Musculoskeletal: Denies back pain or joint pain [] Integument: Denies rash or skin lesions [] Neurologic: headache, denies focal weakness or sensory changes [] Endocrine: Denies polyuria or polydipsia [] Current Medications Current Medications Current Medications Medications (Trade) Dose Ordered Sig/Marnie Start Time Stop Time Status Last Admin Dose Admin Acetaminophen (Tylenol) 650 mg 1X ONCE 03/04/17 19:45 03/04/17 19:46 DC 03/04/17 19:56 650 MG Metoclopramide HCl (Reglan) 10 mg 1X ONCE 03/04/17 19:45 03/04/17 19:46 DC 03/04/17 19:56 10 MG Potassium Chloride (Klor-Con) 40 meq 1X ONCE 03/04/17 20:30 03/04/17 20:32 DC 03/04/17 20:37 40 MEQ Allergies Allergies Allergies Coded Allergies Type Severity Reaction Last Updated Verified No Known Drug Allergies 01/21/16 No Physical Exam Physical Exam Constitutional: Well developed, well nourished, no acute distress, non-toxic appearance. [] HENT: Normocephalic, atraumatic, bilateral external ears normal, oropharynx moist, no oral exudates, nose normal. Bilateral tympanic membranes appear to be normal. Patient's throat with no erythematous no exudate no drainage noted. Patient appears to have an abscess noted in the right upper dental area towards the roof of the mouth. No drainage or discharge coming from the site. Eyes: PERRLA, EOMI, conjunctiva normal, no discharge. [] Neck: Normal range of motion, no tenderness, supple, no stridor. [] Cardiovascular:Heart rate regular rhythm, no murmur [] Lungs & Thorax: Bilateral breath sounds clear to auscultation [] Skin: Warm, dry, no erythema, no rash. [] Back: No tenderness Extremities: No tenderness, no cyanosis, no clubbing, ROM intact, no edema. Patient with bilateral lower leg swelling noted. Neurologic: Alert and oriented X 3, normal motor function, normal sensory function, no focal deficits noted. [] Psychologic: Affect normal, judgement normal, mood normal. [] Current Patient Data Vital Signs Vital Signs Date Time Temp Pulse Resp B/P (MAP) Pulse Ox O2 Delivery O2 Flow Rate FiO2 03/04/17 20:37 91 18 181/100 (127) 97 Room Air 03/04/17 18:35 98.5 98.5 Lab Values Laboratory Tests Test 03/04/17 19:02 03/04/17 19:43 Urine Collection Type Clean catch Urine Color Yellow Urine Clarity Cloudy Urine pH 7.0 Urine Specific Ridott 1.020 Urine Protein Negative mg/dL (NEG-TRACE) Urine Glucose (UA) Negative mg/dL (NEG) Urine Ketones (Stick) Negative mg/dL (NEG) Urine Blood Negative (NEG) Urine Nitrite Negative (NEG) Urine Bilirubin Negative (NEG) Urine Urobilinogen Dipstick 1.0 mg/dL (0.2 mg/dL) Urine Leukocyte Esterase Small (NEG) Urine RBC 0 /HPF (0-2) Urine WBC 1-4 /HPF (0-4) Urine Squamous Epithelial Cells Mod /LPF Urine Bacteria Moderate /HPF (0-FEW) Urine Mucus Mod /LPF White Blood Count 10.2 x10^3/uL (4.0-11.0) Red Blood Count 4.72 x10^6/uL (3.50-5.40) Hemoglobin 12.7 g/dL (12.0-15.5) Hematocrit 37.7 % (36.0-47.0) Mean Corpuscular Volume 80 fL (79-100) Mean Corpuscular Hemoglobin 27 pg (25-35) Mean Corpuscular Hemoglobin Concent 34 g/dL (31-37) Red Cell Distribution Width 14.7 % (11.5-14.5) H Platelet Count 177 x10^3/uL (140-400) Neutrophils (%) (Auto) 72 % (31-73) Lymphocytes (%) (Auto) 18 % (24-48) L Monocytes (%) (Auto) 6 % (0-9) Eosinophils (%) (Auto) 3 % (0-3) Basophils (%) (Auto) 1 % (0-3) Neutrophils # (Auto) 7.3 x10^3uL (1.8-7.7) Lymphocytes # (Auto) 1.8 x10^3/uL (1.0-4.8) Monocytes # (Auto) 0.6 x10^3/uL (0.0-1.1) Eosinophils # (Auto) 0.3 x10^3/uL (0.0-0.7) Basophils # (Auto) 0.1 x10^3/uL (0.0-0.2) Sodium Level 144 mmol/L (136-145) Potassium Level 3.2 mmol/L (3.5-5.1) L Chloride Level 106 mmol/L (98-107) Carbon Dioxide Level 31 mmol/L (21-32) Anion Gap 7 (6-14) Blood Urea Nitrogen 15 mg/dL (7-20) Creatinine 0.9 mg/dL (0.6-1.0) Estimated GFR (Cockcroft-Gault) 80.5 BUN/Creatinine Ratio 17 (6-20) Glucose Level 137 mg/dL (70-99) H Calcium Level 8.6 mg/dL (8.5-10.1) Total Bilirubin 0.3 mg/dL (0.2-1.0) Aspartate Amino Transferase (AST) 18 U/L (15-37) Alanine Aminotransferase (ALT) 28 U/L (14-59) Alkaline Phosphatase 96 U/L (46-116) KA-Cke-R-Type Natriuretic Peptide 35 pg/mL (0-124) Total Protein 7.3 g/dL (6.4-8.2) Albumin 3.6 g/dL (3.4-5.0) Albumin/Globulin Ratio 1.0 (1.0-1.7) Laboratory Tests 03/04/17 19:43 Laboratory Tests 03/04/17 19:43 EKG EKG [] Radiology/Procedures Radiology/Procedures [facility] [address] [place] [address] IMAGING REPORT Signed PATIENT: FLORINDA ALFORD ACCOUNT: [id number] : 1965 LOCATION: ER AGE: 51 SEX: F EXAM STATUS: REG ER ORD. PHYSICIAN: NESTOR ELY APRN REASON: headache ?migraine elevated BP PROCEDURE: CT HEAD WO CONTRAST CT head without intravenous contrast History: Headache for 2 days. Hypertension. Comparison: None. Technique: Axial images are obtained of the head from the skull base through the vertex without IV contrast. Exposure: One or more of the following individualized dose reduction techniques were utilized for this examination: 1. Automated exposure control 2. Adjustment of the mA and/or kV according to patient size 3. Use of iterative reconstruction technique Findings: The ventricles are appropriate in size, shape, and location for the patient's age. No obvious intracranial mass, mass-effect, midline shift, hemorrhage or obvious acute infarction is identified. Basilar cisterns are patent. Bone windows demonstrate no acute calvarial abnormality. The visualized paranasal sinuses appear clear. Impression: 1. No acute intracranial process. Electronically signed by: Faisal Gallo MD (03/04/2017 7:58 PM) DICTATED and SIGNED BY: FAISAL GALLO MD DATE: 03/04/171954 CC: NESTOR ELY APRN; NON,STAFF; JADYN COLIN MD ~ [] Course & Med Decision Making Course & Med Decision Making Pertinent Labs and Imaging studies reviewed. (See chart for details) Spoke with patient regards to treatment regimen and she has a headache with an elevated blood pressure, patient states that she believes that this is a migraine. However patient did state she had shortness of air yesterday. She does bilateral lower leg swelling in which patient states that she works 2 jobs and that's why her legs are swollen. Patient continues to state that she is nauseated denies vomiting. Spoke with patient regards to having a CT scan. Patient states that she believes that her normal migraine headache however patient states that she took Aleve this morning and she took ibuprofen this afternoon with no relief of her headache. She states that she has seen here in the past for migraine headaches. Patient denies visual difficulty. 2011 CT scan of the head was negative. CBC was normal. CMP potassium was slightly low at 3.2. Patient will be provided with potassium supplement 40 mEq here in the emergency department. We will recommend that the patient follow-up with primary care or environmental protection economist in the next 2 days for repeat potassium level. Patient was also noted to have a urinary tract infection with a positive leukocyte Estrace with a large amount of bacteria. She'll be placed on Macrobid for this. Patient will be discharged home in stable condition. Patient was provided with discharge instructions treatment regimens as well as results of her CT scan CMP CBC and UA. Bactrim will be provided with potassium supplement here in the emergency department. She'll be placed on Augmentin for UTI and dental abscess with urine culture pending. Signs and symptoms to return to emergency department has been provided. Patient was also encouraged to monitor her BP and keep a log to provide to her PCP or environmental protection economist at followup. Patients blood pressure remained elevated. Spoke with Dr Colin and his recommendation was to give her metoprolol now have her monitor her BP and home. Followup in 1 week. If BP continues to be elevated call for appointment sooner. [] Dragon Disclaimer Dragon Disclaimer This electronic medical record was generated, in whole or in part, using a voice recognition dictation system. Departure Departure Impression: Primary Impression: Dental abscess Additional Impressions: HTN (hypertension) UTI (urinary tract infection) Headache Hypokalemia Disposition: 01 HOME, SELF-CARE Condition: STABLE Referrals: JADYN COLIN MD (PCP) Patient Instructions: Dental Abscess, Headache, FAQs, Hypertension, Hypokalemia -Brief, Urinary Tract Infection, [id number] Additional Instructions: Activity as tolerated Medication as prescribed Tylenol or ibuprofen for pain and discomfort You may also look into getting MATTHEW to help with lower leg swelling Keep a log of your blood pressure to take to your primary care provider Followup with your primary care provider in 2 day in regards low potassium and blood pressure Return to emergency department as needed for signs and symptoms that become worse. Scripts Amoxicillin/Potassium Clav (AUGMENTIN 875-125 TABLET) 1 Each Tablet 1 TAB PO BID, #20 TAB Prov: NESTOR ELY APRN 03/04/17 Problem Qualifiers NESTOR ELY APRN Mar 04, 2017 18:59
[2017-03-04 19:08] LABS: BILIRUBIN,URINE NEGATIVE (NEG); GLUCOSE,URINE NEGATIVE (NEG); NITRITE,URINE NEGATIVE (NEG); PROTEIN,URINE NEGATIVE (NEG-TRACE)
[2017-03-04 19:15] LABS: BACTERIA,URINE MODERATE /HPF (0-FEW); RBC,URINE 0 /HPF (0-2); SQUAMOUS EPITHELIAL CELL,UR MOD /LPF
[2017-03-04] MEDS ORDERED: METOCLOPRAMIDE 10 MG TABLET. PO ONE (19:45)
[2017-03-04] MEDS ORDERED: ACETAMINOPHEN 325 MG TABLET. PO ONE (19:45)
[2017-03-04 19:53] LABS: BASO # 0.1 x10^3/uL (0.0-0.2); BASO % 1 % (0-3); EOS % 3 % (0-3); HEMATOCRIT 37.7 % (36.0-47.0); HEMOGLOBIN 12.7 g/dL (12.0-15.5); LYMPH # 1.8 x10^3/uL (1.0-4.8); LYMPH % 18 % (24-48); MEAN CORPUSCULAR HEMOGLOBIN 27 pg (25-35); MEAN CORPUSCULAR HGB CONC 34 g/dL (31-37); MEAN CORPUSCULAR VOLUME 80 fL (79-100); MONO % 6 % (0-9); NEUT % 72 % (31-73); PLATELET COUNT 177 x10^3/uL (140-400); RED BLOOD COUNT 4.72 x10^6/uL (3.50-5.40); RED CELL DISTRIBUTION WIDTH 14.7 % (11.5-14.5); WHITE BLOOD COUNT 10.2 x10^3/uL (4.0-11.0)
--- NOTE | 2017-03-04 20:01 | RAD ---
CT head without intravenous contrast History: Headache for 2 days. Hypertension. Comparison: None. Technique: Axial images are obtained of the head from the skull base through the vertex without IV contrast. Exposure: One or more of the following individualized dose reduction techniques were utilized for this examination: 1. Automated exposure control 2. Adjustment of the mA and/or kV according to patient size 3. Use of iterative reconstruction technique Findings: The ventricles are appropriate in size, shape, and location for the patient's age. No obvious intracranial mass, mass-effect, midline shift, hemorrhage or obvious acute infarction is identified. Basilar cisterns are patent. Bone windows demonstrate no acute calvarial abnormality. The visualized paranasal sinuses appear clear. Impression: 1. No acute intracranial process. Electronically signed by: Faisal Kim MD (03/04/2017 7:58 PM)
[2017-03-04 20:03] LABS: CALCIUM 8.6 mg/dL (8.5-10.1); CREATININE 0.9 mg/dL (0.6-1.0); GFR 80.5; POTASSIUM 3.2 mmol/L (3.5-5.1)
[2017-03-04 20:06] LABS: ALBUMIN 3.6 g/dL (3.4-5.0); TOTAL BILIRUBIN 0.3 mg/dL (0.2-1.0); TOTAL PROTEIN 7.3 g/dL (6.4-8.2)
[2017-03-04] MEDS ORDERED: AMOX1TAB61 PO (20:20)
[2017-03-04] MEDS ORDERED: POTASSIUM CHLORIDE 20 MEQ TABLET.ER. PO ONE (20:30)
[2017-03-04 21:14] VITALS: BP 184/100
[2017-03-04] MEDS ORDERED: METOPROLOL TART IMMED RELEASE 25 MG TABLET. PO ONE (21:15)
== END 2017-03-04 21:17 | disposition home or self-care (01) ==
LOC: ER 17:54
DX: K04.7 Periapical abscess without sinus (principal); N39.0 Urinary tract infection, site not specified; E87.6 Hypokalemia; K21.9 Gastro-esophageal reflux disease without esophagitis; I10 Essential (primary) hypertension
CPT/HCPCS: 36415; 70450; 80053; 81001; 83880; 85027; 87086; 99285; J8597

== ENCOUNTER 2019-10-12 15:51 | Emergency (ER) | payer BC ==
[~2019-10-12] VITALS: Ht 154.9 cm; Wt 104.0 kg
[~2019-10-12 15:51] MED LIST changes: +AMOX1TAB61 PO; -HYDR12.53 PO; +HYDR12.575 PO; +NAPR-514 PO; -NAPR500T3 PO
[2019-10-12 16:05] VITALS: BP 201/92
[2019-10-12] MEDS ORDERED: BENZONATATE 100 MG CAPSULE. PO ONE (16:30)
[2019-10-12] MEDS ORDERED: IPRATRPIUM/ALBUTEROL 0.5/2.5MG 3 ML NEBU. NEB ONE (16:30)
[2019-10-12] MEDS ORDERED: hydroCHLOROthiazide 12.5 MG CAPSULE PO ONE (16:30)
--- NOTE | 2019-10-12 16:39 | RAD ---
Chest, PA and Lateral: Technique: PA and lateral views of the chest were obtained. History: Cough. Comparison: 12/23/2016. Findings: Mild cardiomegaly. Mild prominent bilateral perihilar interstitial lung markings likely bronchitis or interstitial infiltrates. No evidence of pleural effusion. IMPRESSION: Mild prominent bilateral perihilar interstitial lung markings could be mild bronchitis or interstitial infiltrates. Electronically signed by: Hernandez Holt MD (10/12/2019 4:36 PM) [place] [id number]
[2019-10-12 16:55] LABS: INFLUENZA A PATIENT NEGATIVE (NEGATIVE); INFLUENZA B PATIENT NEGATIVE (NEGATIVE)
[2019-10-12] MEDS ORDERED: DOXY100T PO (17:21)
[2019-10-12] MEDS ORDERED: ALBU2.5V8 IH (17:21)
[2019-10-12] MEDS ORDERED: PRED50TA PO (17:21)
[2019-10-12] MEDS ORDERED: GUAI473L15 PO ×2 (17:21→17:29)
--- NOTE | 2019-10-12 17:24 | PHYS DOC ---
Past Medical History Past Medical History: GERD, Hypertension, Other Additional Past Medical Histor: SEASONAL ALLERGIES Past Surgical History: Hysterectomy Alcohol Use: Occasionally Drug Use: None Adult General Chief Complaint Chief Complaint: COUGH HPI HPI Patient is a 54 year old female who presents to the ED today complaining of a productive cough, body aches, subjective fevers, symptoms began 3 days ago. Patient reports trying [id number] remedies with no relief. Review of Systems Review of Systems Constitutional: Reports subjective fevers and body aches Eyes: Denies change in visual acuity, redness, or eye pain [] HENT: Denies nasal congestion or sore throat [] Respiratory: Reports cough, denies shortness of breath [] Cardiovascular: No additional information not addressed in HPI [] GI: Denies abdominal pain, nausea, vomiting, bloody stools or diarrhea [] : Denies dysuria or hematuria [] Musculoskeletal: Denies back pain or joint pain [] Integument: Denies rash or skin lesions [] Neurologic: Denies headache, focal weakness or sensory changes [] All other systems were reviewed and found to be within normal limits, except as documented in this note. Current Medications Current Medications Current Medications Medications (Trade) Dose Ordered Sig/Marnie Start Time Stop Time Status Last Admin Dose Admin Albuterol/ Ipratropium (Duoneb) 3 ml 1X ONCE 10/12/19 16:30 10/12/19 16:31 DC 10/12/19 16:32 3 ML Benzonatate (Tessalon Perle) 100 mg 1X ONCE 10/12/19 16:30 10/12/19 16:31 DC 10/12/19 16:36 100 MG Hydrochlorothiazide (Microzide) 12.5 mg 1X ONCE 10/12/19 16:30 10/12/19 16:31 DC 10/12/19 16:36 12.5 MG Allergies Allergies Allergies Coded Allergies Type Severity Reaction Last Updated Verified No Known Drug Allergies 01/21/16 No Physical Exam Physical Exam Constitutional: Well developed, well nourished, no acute distress, non-toxic appearance. [] HENT: Normocephalic, atraumatic, bilateral external ears normal, oropharynx moist, no oral exudates, nose normal. [] Eyes: PERRLA, EOMI, conjunctiva normal, no discharge. [] Neck: Normal range of motion, no tenderness, supple, no stridor. [] Cardiovascular:Heart rate regular rhythm, no murmur [] Lungs & Thorax: Diminished breath sounds to posterior lung bases, patient is actively coughing in the ED Abdomen: Bowel sounds normal, soft, no tenderness, no masses, no pulsatile masses. [] Skin: Warm, dry, no erythema, no rash. [] Back: No tenderness, no CVA tenderness. [] Extremities: No tenderness, no cyanosis, no clubbing, ROM intact, no edema. [] Neurologic: Alert and oriented X 3, normal motor function, normal sensory function, no focal deficits noted. [] Psychologic: Affect normal, judgement normal, mood normal. [] Current Patient Data Vital Signs Vital Signs Date Time Temp Pulse Resp B/P (MAP) Pulse Ox O2 Delivery O2 Flow Rate FiO2 10/12/19 16:32 98 Room Air 10/12/19 16:05 98.2 98 16 201/92 (128) 98.2 Lab Values Laboratory Tests Test 10/12/19 16:14 Influenza Type A Antigen Negative (NEGATIVE) Influenza Type B Antigen Negative (NEGATIVE) EKG EKG [] Radiology/Procedures Radiology/Procedures []PROCEDURE: CHEST PA & LATERAL Chest, PA and Lateral: Technique: PA and lateral views of the chest were obtained. History: Cough. Comparison: 12/23/2016. Findings: Mild cardiomegaly. Mild prominent bilateral perihilar interstitial lung markings likely bronchitis or interstitial infiltrates. No evidence of pleural effusion. IMPRESSION: Mild prominent bilateral perihilar interstitial lung markings could be mild bronchitis or interstitial infiltrates. Electronically signed by: Hernandez Holt MD (10/12/2019 4:36 PM) [place] [id number] DICTATED and SIGNED BY: HERNANDEZ HOLT MD DATE: 10/12/19 6899 Course & Med Decision Making Course & Med Decision Making Pertinent Labs and Imaging studies reviewed. (See chart for details) This is a 54-year-old female patient presenting to the ED today complaining of a cough, bodyaches and subjective fevers for 4 days. Negative influenza A or B. Chest x-ray interpreted by radiologist was noted for possible bronchitis or interstitial infiltrates. Patient is a fever. Will be discharged with doxycycline, breathing treatments, Guafenisin with promethazine and prednisone for 5 days. Follow-up with PCP in the course of this week or next week Angie Disclaimer Agnie Disclaimer This electronic medical record was generated, in whole or in part, using a voice recognition dictation system. Departure Departure Impression: Primary Impression: Acute bronchitis Additional Impression: Bilateral pulmonary infiltrates on chest x-ray Disposition: HOME, SELF-CARE Condition: STABLE Referrals: UNKNOWN PCP NAME (PCP) follow up next week Patient Instructions: Acute Bronchitis, Pneumonia, Adult, [id number] Additional Instructions: You were evaluated in the emergency room and noted for bronchitis and pneumonia. We put you on antibiotics, take them as prescribed. Take the rest of the medicines as ordered, follow-up with your own doctor in the next 1 week. Come back to the ED at any point symptoms worsen. Scripts Guaifenesin/Codeine Phosphate (GUAIFENESIN AC COUGH SYRUP) 473 Ml Liquid 5 ML PO Q6HRS PRN for cough and congestion MDD 30 Milliliter(s), #120 ML 0 Refills Prov: LUCIANA NAYLOR APRN 10/12/19 Guaifenesin/Codeine Phosphate (GUAIFENESIN AC COUGH SYRUP) 473 Ml Liquid 5 ML PO Q6HRS PRN for cough and congestion MDD 30 Milliliter(s), #120 ML 0 Refills Prov: LUCIANA NAYLOR APRN 10/12/19 Doxycycline Hyclate (DOXYCYCLINE HYCLATE) 100 Mg Tablet 1 TAB PO BID, #14 TAB Prov: LUCIANA NAYLOR APRN 10/12/19 Albuterol Sulfate (Proair Hfa) 8.5 Gm Hfa.aer.ad 2 PUFF IH PRN Q4-6HRS PRN for wheezing for 21 Days, #1 INHALER 0 Refills Prov: LUCIANA NAYLOR APRN 10/12/19 Prednisone (PREDNISONE) 50 Mg Tablet 1 TAB PO DAILY, #4 TAB Prov: LUCIANA NAYLOR APRN 10/12/19 Problem Qualifiers Primary Impression: Acute bronchitis Bronchitis organism: unspecified organism Qualified Codes: J20.9 - Acute bronchitis, unspecified LUCIANA NAYLOR APRN Oct 12, 2019 17:24
== END 2019-10-12 17:28 | disposition home or self-care (01) ==
LOC: ER 15:51
DX: J20.9 Acute bronchitis, unspecified (principal); R91.8 Other nonspecific abnormal finding of lung field; R50.9 Fever, unspecified; R52 Pain, unspecified; K21.9 Gastro-esophageal reflux disease without esophagitis; I10 Essential (primary) hypertension; J30.2 Other seasonal allergic rhinitis; Z90.710 Acquired absence of both cervix and uterus
CPT/HCPCS: 71046; 87804; 94640; 99285; J7620

== ENCOUNTER → 2020-05-08 | Outpatient (CLI) | payer BC ==
[~2020-05-08] MED LIST changes: +ALBU2.5V8 IH; +DOXY100T PO; +GUAI473L15 PO; +PRED50TA PO
--- NOTE | 2020-05-08 17:26 | CARD ---
MR#: [id number] Date of Study: 05/08/2020 Ordering Physician: HALEY MERLOS, Referring Physician: HALEY MERLOS, Tech: Whitney Chavez APPROVED REPORT EXAM: Two-dimensional and M-mode echocardiogram with Doppler and color Doppler. Other Information Quality : AverageHR: 70bpm INDICATION Dyspnea RISK FACTORS Hypertension Hyperlipidemia 2D DIMENSIONS RVDd3.5 (2.9-3.5cm)Left Atrium(2D)3.3 (1.6-4.0cm) IVSd1.0 (0.7-1.1cm)Aortic Root(2D)3.4 (2.0-3.7cm) LVDd5.4 (3.9-5.9cm)LVOT Diameter2.0 (1.8-2.4cm) PWd0.9 (0.7-1.1cm)LVDs3.0 (2.5-4.0cm) FS (%) 44.5 %SV108.1 ml Aortic Valve AoV Peak Joaquin.155.2cm/sAoV VTI34.1cm AO Peak GR.9.6mmHgLVOT Peak Joaquin.125.9cm/s LVOT VTI 26.18cmAO Mean GR.6mmHg VIRGILIO (VMAX)1.59ar9KZI (VTI)2.45cm2 Mitral Valve MV E Pdhwuech52.3cm/sMV DECEL [id number] MV A Sfguvpsd034.0cm/sMV E Mean Gr.2mmHg MV RNO16dnZ/A Ratio0.8 MVA (PHT)2.60cm2 TDI E/Lateral E'21.0E/Medial E'16.7 Pulmonary Valve PV Peak Vyfibxak746.7cm/sPV Peak Grad.4mmHg Tricuspid Valve TR P. Ycmwicfi854gu/sRAP [id number] TR Peak Gr.00loYhETAV84ynZl Pulmonary Vein S1 Rsdwiyzt10.9cm/sD2 Tiufmxep94.9cm/s PVa [id number] LEFT VENTRICLE The left ventricle is normal size. There is borderline to mild concentric left ventricular hypertroph y. The left ventricular systolic function is normal and the ejection fraction is within normal range. The ejection fraction is 60-65%. There is normal LV segmental wall motion. Transmitral Doppler flow pattern is Grade I-abnormal relaxation pattern. RIGHT VENTRICLE The right ventricle is normal size. There is normal right ventricular wall thickness. The right ventr icular systolic function is normal. ATRIA The left atrium size is normal. The right atrium size is normal. The interatrial septum is intact wit h no evidence for an atrial septal defect or patent foramen ovale as noted on 2-D or Doppler imaging. AORTIC VALVE The aortic valve is not well visualized. Doppler and Color Flow revealed no significant aortic regurg itation. There is no significant aortic valvular stenosis. Calculated aortic valve area is 2.76 cm2 w ith maximum pressure gradient of 11 mmHg and mean pressure gradient of 7 mmHg. MITRAL VALVE The mitral valve is normal in structure and function. There is no evidence of mitral valve prolapse. There is no mitral valve stenosis. Doppler and Color Flow revealed no mitral valve regurgitation note d. TRICUSPID VALVE The tricuspid valve is normal in structure and function. Doppler and Color Flow revealed trace tricus pid regurgitation with an estimated PAP of 20 mmHg. There is no tricuspid valve stenosis. PULMONIC VALVE The pulmonic valve is not well visualized. Doppler and Color Flow revealed no pulmonic valvular regur gitation. GREAT VESSELS The aortic root is normal in size. The IVC is normal in size and collapses >50% with inspiration. PERICARDIAL EFFUSION There is no evidence of significant pericardial effusion. Critical Notification Critical Value: No <Conclusion> The left ventricle is normal size. The left ventricular systolic function is normal and the ejection fraction is within normal range. The ejection fraction is 60-65%. There is borderline to mild concentric left ventricular hypertrophy. Doppler and Color Flow revealed no significant aortic regurgitation. There is no significant aortic valvular stenosis. Doppler and Color Flow revealed no mitral valve regurgitation noted. Doppler and Color Flow revealed trace tricuspid regurgitation with an estimated PAP of 20 mmHg. Signed by : Saroj Johnson MD Electronically Approved : 05/08/2020 17:26:02
== END | disposition home or self-care (01) ==
LOC: ECHO 10:03
PROVIDERS: ATTEND Internal Medicine Cardiovascular Disease
DX: I51.7 Cardiomegaly (principal); R01.1 Cardiac murmur, unspecified
CPT/HCPCS: 93306